=== PATIENT | female | born 1970 | race American Indian/Alaskan Native ===

== ENCOUNTER 2021-10-05 18:00 | Inpatient (IN) | payer MEDICAID, OTHER ==
[2021-10-05] MEDS ORDERED: SODIUM CHLORIDE 0.9% 1000 ML 1,000 ML IV ONE (18:37)
[2021-10-05] MEDS ORDERED: MORPHINE 4 MG/1 ML INJ IV ONE (18:37)
[2021-10-05] MEDS ORDERED: ONDANSETRON 4 MG/2 ML INJ IV ONE (18:37)
[2021-10-05 19:24] LABS: Mean Corpuscular HGB Conc 27 % (30-34); Mean Corpuscular Volume 78 fl (79-97); Platelet Count 423 K/mm3 (140-440); Red Blood Count 1.86 M/mm3 (3.65-5.03); Red Cell Distribution Width 25.8 % (13.2-15.2)
[2021-10-05 19:28] LABS: Hematocrit 14.6 % (30.3-42.9); Hemoglobin 3.9 gm/dl (10.1-14.3)
[2021-10-05 19:33] LABS: Alanine Aminotransferase 13 units/L (7-56); Albumin 2.9 g/dL (3.9-5); BUN/Creatinine Ratio 14; Blood Urea Nitrogen 11 mg/dL (7-17); Calcium 8.2 mg/dL (8.4-10.2); Hemolysis Index 0
[2021-10-05] MEDS ORDERED: SODIUM CHLORIDE 0.9% 500 ML 500 ML IV ONE ×2 (19:35→20:14)
--- NOTE | 2021-10-05 19:41 | Emergency Department Report ---
ED Abdominal Pain HPI - General Chief Complaint: Abdominal Pain Stated Complaint: ANEMIA AND PELVIC PAIN Time Seen by Provider: 10/05/21 18:17 Source: patient Mode of arrival: Wheelchair Limitations: Other - History of Present Illness Initial Comments: Patient is a 51-year-old female presents emergency room with complaints of generalized abdominal pain that began a week ago. Patient states that she has been having vaginal bleeding for 9 days. she states the bleeding has improved and she now just has spotting. She has associated nausea. She states that one day earlier in the week she did have a few episodes of vomiting. She states that she has no appetite and has not been eating very much. She states that she has been able to have a normal bowel movement. she states that she frequently has heavy vaginal bleeding for long periods. She states that she has a history of anemia. she states she last had a transfusion 11 years ago. She is not currently seeing a INTERCHANGE AGENT. No allergies to medications. Severity scale (0 -10): 5 - Related Data Allergies Allergy/AdvReac Type Severity Reaction Status Date / Time No Known Allergies Allergy Unverified 10/05/21 18:10 ED Review of Systems ROS: Stated complaint: ANEMIA AND PELVIC PAIN Other details as noted in HPI Comment: All other systems reviewed and negative ED Physical Exam - General Limitations: Other General appearance: alert, in no apparent distress - Head Head exam: Present: atraumatic, normocephalic - Eye Eye exam: Present: normal appearance - ENT ENT exam: Present: mucous membranes moist - Respiratory Respiratory exam: Present: normal lung sounds bilaterally. Absent: respiratory distress, wheezes, rales, rhonchi, stridor, chest wall tenderness, accessory muscle use, decreased breath sounds, prolonged expiratory - Cardiovascular Cardiovascular Exam: Present: normal rhythm, tachycardia, normal heart sounds. Absent: systolic murmur, diastolic murmur, rubs, gallop - GI/Abdominal GI/Abdominal exam: Present: soft, tenderness (suprapubic, LLQ), normal bowel sounds. Absent: distended, guarding, rebound, rigid - Neurological Exam Neurological exam: Present: alert, oriented X3 - Psychiatric Psychiatric exam: Present: normal affect, normal mood - Skin Skin exam: Present: warm, dry, intact ED Course Vital Signs 10/05/21 10/05/21 18:47 20:25 Temperature 98.2 F Pulse Rate 104 H Respiratory 15 19 Rate Blood Pressure 106/53 [Left] O2 Sat by Pulse 100 Oximetry - Reevaluation(s) Reevaluation #1: 10/05/21 20:[address] Nielsen, ER attending who recommended transfusing 3 units red blood cells - Consultations Consultation #1: 10/05/21 21:[address] Davidson, INTERCHANGE AGENT who advised she will consult on patient, advised not a surgical case at this time, advised hospitalist admission. 10/05/21 21:[address] Quinteros, hospitalist will accept and resume care of patient, advised to order IV Zosyn every 8 hours due to leukocytosis with abdominal pain, he will admit to hospitalist service. ED Medical Decision Making - Lab Data Result diagrams: 10/05/21 18:56 10/05/21 18:56 Lab Results 10/05/21 10/05/21 10/05/21 Range/Units 18:56 18:56 18:56 WBC 19.2 H (4.5-11.0) K/mm3 RBC 1.86 L (3.65-5.03) M/mm3 Hgb 3.9 L* (10.1-14.3) gm/dl Hct 14.6 L* (30.3-42.9) % MCV 78 L (79-97) fl MCH 21 L (28-32) pg MCHC 27 L (30-34) % RDW 25.8 H (13.2-15.2) % Plt Count 423 (140-440) K/mm3 Lymph % (Auto) [employer] [facility] % (Auto) [employer] Eos % (Auto) [employer] Baso % (Auto) [employer] Lymph # (Auto) [employer] [facility] # (Auto) [employer]ic Eos # (Auto) Fleet [employer]ic Baso # (Auto) Fleet [employer] Add Manual Diff Complete Total Counted 100 Seg Neutrophils % [employer] Seg Neuts % (Manual) 83.0 H (40.0-70.0) % Lymphocytes % (Manual) 12.0 L (13.4-35.0) % Monocytes % (Manual) 5.0 (0.0-7.3) % Nucleated RBC % Not Reportable Seg Neutrophils # [employer]ic Seg Neutrophils # Man 15.9 H (1.8-7.7) K/mm3 Band Neutrophils # 0.0 K/mm3 Lymphocytes # (Manual) 2.3 (1.2-5.4) K/mm3 Abs React Lymphs (Man) 0.0 K/mm3 Monocytes # (Manual) 1.0 H (0.0-0.8) K/mm3 Eosinophils # (Manual) 0.0 (0.0-0.4) K/mm3 Basophils # (Manual) 0.0 (0.0-0.1) K/mm3 Metamyelocytes # 0.0 K/mm3 Myelocytes # 0.0 K/mm3 Promyelocytes # 0.0 K/mm3 Blast Cells # 0.0 K/mm3 WBC Morphology Not Reportable Hypersegmented Neuts Not Reportable Hyposegmented Neuts Not Reportable Hypogranular Neuts Not Reportable Smudge Cells Not Reportable Toxic Granulation Not Reportable Toxic Vacuolation Not Reportable Dohle Bodies Not Reportable Pelger-Huet Anomaly Not Reportable Erendira Rods Not Reportable Platelet Estimate Consistent w auto Clumped Platelets Not Reportable Plt Clumps, EDTA Not Reportable Large Platelets Not Reportable Giant Platelets Not Reportable Platelet Satelliting Not Reportable Plt Morphology Comment Not Reportable RBC Morphology Not Reportable Dimorphic RBCs Not Reportable Polychromasia Not Reportable Hypochromasia 3+ Poikilocytosis 1+ Anisocytosis 2+ Microcytosis 2+ Macrocytosis Few Spherocytes Not Reportable Pappenheimer Bodies Not Reportable Sickle Cells Not Reportable Target Cells Rare Tear Drop Cells Not Reportable Ovalocytes Few Stomatocytes Few Helmet Cells Not Reportable [place] Bodies Not Reportable [place] Rings Not Reportable Rodolfo Cells Not Reportable Bite Cells Not Reportable Crenated Cell Not Reportable Elliptocytes Few Acanthocytes (Spur) Not Reportable Rouleaux Not Reportable Hemoglobin C Crystals Not Reportable Schistocytes Not Reportable Malaria parasites Not Reportable Yoav Bodies Not Reportable Hem Pathologist Commnt No Sodium 132 L (137-145) mmol/L Potassium 3.6 (3.6-5.0) mmol/L Chloride 98.3 (98-107) mmol/L Carbon Dioxide 18 L (22-30) mmol/L Anion Gap 19 mmol/L BUN 11 (7-17) mg/dL Creatinine 0.8 (0.6-1.2) mg/dL Estimated GFR > 60 ml/min BUN/Creatinine Ratio 14 % Glucose 103 H (65-100) mg/dL Calcium 8.2 L (8.4-10.2) mg/dL Total Bilirubin 0.40 (0.1-1.2) mg/dL AST 19 (5-40) units/L ALT 13 (7-56) units/L Alkaline Phosphatase 119 (35-129) units/L Total Protein 7.9 (6.3-8.2) g/dL Albumin 2.9 L (3.9-5) g/dL Albumin/Globulin Ratio 0.6 % Lipase 27 (13-60) units/L HCG, Qual Negative (Negative) Blood Type Antibody Screen Crossmatch 10/05/21 Range/Units 19:40 WBC (4.5-11.0) K/mm3 RBC (3.65-5.03) M/mm3 Hgb (10.1-14.3) gm/dl Hct (30.3-42.9) % MCV (79-97) fl MCH (28-32) pg MCHC (30-34) % RDW (13.2-15.2) % Plt Count (140-440) K/mm3 Lymph % (Auto) [place] % (Auto) Eos % (Auto) Baso % (Auto) Lymph # (Auto) [facility] [facility] # (Auto) Eos # (Auto) Baso # (Auto) Add Manual Diff Total Counted Seg Neutrophils % Seg Neuts % (Manual) (40.0-70.0) % Lymphocytes % (Manual) (13.4-35.0) % Monocytes % (Manual) (0.0-7.3) % Nucleated RBC % Seg Neutrophils # Seg Neutrophils # Man (1.8-7.7) K/mm3 Band Neutrophils # K/mm3 Lymphocytes # (Manual) (1.2-5.4) K/mm3 Abs React Lymphs (Man) K/mm3 Monocytes # (Manual) (0.0-0.8) K/mm3 Eosinophils # (Manual) (0.0-0.4) K/mm3 Basophils # (Manual) (0.0-0.1) K/mm3 Metamyelocytes # K/mm3 Myelocytes # K/mm3 Promyelocytes # K/mm3 Blast Cells # K/mm3 WBC Morphology Hypersegmented Neuts Hyposegmented Neuts Hypogranular Neuts Smudge Cells Toxic Granulation Toxic Vacuolation Dohle Bodies Pelger-Huet Anomaly Erendira Rods Platelet Estimate Clumped Platelets Plt Clumps, EDTA Large Platelets Giant Platelets Platelet Satelliting Plt Morphology Comment RBC Morphology Dimorphic RBCs Polychromasia Hypochromasia Poikilocytosis Anisocytosis Microcytosis Macrocytosis Spherocytes Pappenheimer Bodies Sickle Cells Target Cells Tear Drop Cells Ovalocytes Stomatocytes Helmet Cells [place]ar[place] Bodies [place] Rings Rodolfo Cells Bite Cells Crenated Cell Elliptocytes Acanthocytes (Spur) Rouleaux Hemoglobin C Crystals Schistocytes Malaria parasites Yoav Bodies Hem Pathologist Commnt Sodium (137-145) mmol/L Potassium (3.6-5.0) mmol/L Chloride (98-107) mmol/L Carbon Dioxide (22-30) mmol/L Anion Gap mmol/L BUN (7-17) mg/dL Creatinine (0.6-1.2) mg/dL Estimated GFR ml/min BUN/Creatinine Ratio % Glucose (65-100) mg/dL Calcium (8.4-10.2) mg/dL Total Bilirubin (0.1-1.2) mg/dL AST (5-40) units/L ALT (7-56) units/L Alkaline Phosphatase (35-129) units/L Total Protein (6.3-8.2) g/dL Albumin (3.9-5) g/dL Albumin/Globulin Ratio % Lipase (13-60) units/L HCG, Qual (Negative) Blood Type B POSITIVE Antibody Screen Negative Crossmatch See Detail Vital Signs 10/05/21 10/05/21 10/05/21 18:47 20:25 21:45 Temperature 98.2 F 98.2 F Pulse Rate 104 H 96 H Respiratory 15 19 17 Rate Blood Pressure 111/55 Blood Pressure 106/53 [Left] O2 Sat by Pulse 100 96 Oximetry - Radiology Data Radiology results: report reviewed Ordering Physician: RUTH ANN PRASAD Date of Service: 10/05/21 Procedure(s): CT abdomen pelvis w con Accession Number(s): [id number] cc: RUTH ANN PRASAD CT abdomen pelvis w con INDICATION / CLINICAL INFORMATION: generalized abd pain. TECHNIQUE: Axial CT images were obtained through the abdomen and pelvis after 100 cc Omnipaque [address] scans at this location are performed using CT dose reduc tion for ALARA by means of automated exposure control. COMPARISON: None available. FINDINGS: LOWER CHEST: No significant abnormality LIVER: Liver is enlarged with suspected hepatic steatosis. GALLBLADDER/BILIARY TREE: No significant abnormality PANCREAS: No significant abnormality SPLEEN: No significant abnormality ADRENALS: No significant abnormality KIDNEYS / URETER: Mild asymmetric prominence of the right ureter, may reflect mild obstruction related to enlarged fibroid uterus. No discrete ureteral stone. There is no delayed enhancement within either kidney. Left kidney is unremarkable. URINARY BLADDER: No significant abnormality REPRODUCTIVE ORGANS: Uterus is enlarged, measuring 13.8 cm. There are multiple partially calcified uterine fibroids. 14.3 cm mass arises from the left aspect of the uterine fundus and likely reflects large exophytic fibroid. No suspicious adnexal mass. STOMACH / BOWEL: No significant abnormality. The appendix is normal in caliber. LYMPH NODES: No significant adenopathy. VASCULATURE: No significant abnormality. OTHER: No free air, free fluid, or focal fluid collection is identified. SKELETAL SYSTEM: No acute osseous findings. IMPRESSION: 1. Markedly enlarged uterus with multiple partially calcified uterine fibroids. This includes a 14.3 cm partially calcified mass arising from the left aspect of the uterine fundus, likely reflecting large exophytic fibroid. Consider follow-up with gynecology. 2. Mild asymmetric prominence of the right ureter with transition located in the region of the enlarged fibroid uterus, may reflect mild obstruction. However, there is no delayed enhancement within the right kidney. No discrete ureteral stone identified. 3. Otherwise, no acute abnormality. 4. Enlarged, fatty liver and other incidental findings as above. Signer Name: Delvin Mendez MD Signed: 10/05/2021 9:01 PM Workstation Name: [id number] Transcribed By: BRNOWYN Dictated By: DELVIN MENDEZ MD Electronically Authenticated By: DELVIN MENDEZ MD Signed Date/Time: 10/05/212100 DD/ 52 TD/TT: - Medical Decision Making Patient is a 51-year-old female presents emergency room with complaints of generalized abdominal pain that began a week ago. Patient states that she has been having vaginal bleeding for 9 days. she states the bleeding has improved and she now just has spotting. She has associated nausea. She states that one day earlier in the week she did have a few episodes of vomiting. She states that she has no appetite and has not been eating very much. She states that she has been able to have a normal bowel movement. she states that she frequently has heavy vaginal bleeding for long periods. She states that she has a history of anemia. she states she last had a transfusion 11 years ago. She is not currently seeing a INTERCHANGE AGENT. No allergies to medications. On exam patient has suprapubic and left lower quadrant tenderness, no guarding, no rebound, no rigidity, no peritoneal signs. Labs significant for leukocytosis at 19,000 and significant anemia with hemoglobin of 3.9. CT abdomen pelvis with IV contrast 1. Markedly enlarged uterus with multiple partially calcified uterine fibroids. This includes a 14.3 cm partially calcified mass arising from the left aspect of the uterine fundus, likely reflecting large exophytic fibroid. Consider follow- up with gynecology. 2. Mild asymmetric prominence of the right ureter with transition located in the region of the enlarged fibroid uterus, may reflect mild obstruction. However, there is no delayed enhancement within the right kidney. No discrete ureteral stone identified. 3. Otherwise, no acute abnormality. 4. Enlarged, fatty liver and other incidental findings as above. discussed case with Dr. Nielsen, ER attending who recommended transfusing 3 units red blood cells. Discussed case with Dr. Davidson, INTERCHANGE AGENT who advised she will consult on patient, advised not a surgical case at this time, advised hospi talist admission. Spoke to Dr. Quinteros, hospitalist will accept and resume care of patient, advised to order IV Zosyn every 8 hours due to leukocytosis with abdominal pain, he will admit to hospitalist service. discussed all findings with pt who is agreeable with plan. Critical Care Time: Yes Critical care time in (mins) excluding proc time.: 35 Critical care attestation.: If time is entered above; I have spent that time in minutes in the direct care of this critically ill patient, excluding procedure time. Critical Care Time: Critical care time interpretation of diagnostic and laboratory studies, consultations, reexaminations ED Disposition Clinical Impression: Severe anemia Abdominal pain Qualifiers: Abdominal location: generalized Qualified Code(s): R10.84 - Generalized abdominal pain Uterine fibroid Qualifiers: Uterine leiomyoma location: unspecified location Qualified Code(s): D25.9 - Leiomyoma of uterus, unspecified Nausea & vomiting Qualifiers: Vomiting type: unspecified Vomiting Intractability: non-intractable Qualified Code(s): R11.2 - Nausea with vomiting, unspecified Leukocytosis Qualifiers: Leukocytosis type: unspecified Qualified Code(s): D72.829 - Elevated white blood cell count, unspecified Disposition: 02 [facility] Is pt being admited?: Yes Does the pt Need Aspirin: No Condition: Fair Instructions: Abdominal Pain (ED) Referrals: PRIMARY CARE, [Primary Care Provider] - 3-5 Days Time of Disposition: 21:43 Print Language: CZECH
[2021-10-05 20:13] LABS: Total Cells Counted 100
[2021-10-05 20:14] LABS: Anisocytosis 2+; Hypochromasia 3+; Macrocytosis Few; Ovalocytes Few; Platelet Estimate Consistent w Auto; Poikilocytosis 1+; Stomatocytes Few; Target Cells Rare
--- NOTE | 2021-10-05 21:05 | Cat Scan Report ---
CT abdomen pelvis w con INDICATION / CLINICAL INFORMATION: generalized abd pain. TECHNIQUE: Axial CT images were obtained through the abdomen and pelvis after 100 cc Omnipaque [address] scans at this location are performed using CT dose reduction for ALARA by means of automated exposure control. COMPARISON: None available. FINDINGS: LOWER CHEST: No significant abnormality LIVER: Liver is enlarged with suspected hepatic steatosis. GALLBLADDER/BILIARY TREE: No significant abnormality PANCREAS: No significant abnormality SPLEEN: No significant abnormality ADRENALS: No significant abnormality KIDNEYS / URETER: Mild asymmetric prominence of the right ureter, may reflect mild obstruction relate d to enlarged fibroid uterus. No discrete ureteral stone. There is no delayed enhancement within eith er kidney. Left kidney is unremarkable. URINARY BLADDER: No significant abnormality REPRODUCTIVE ORGANS: Uterus is enlarged, measuring 13.8 cm. There are multiple partially calcified ut erine fibroids. 14.3 cm mass arises from the left aspect of the uterine fundus and likely reflects la rge exophytic fibroid. No suspicious adnexal mass. STOMACH / BOWEL: No significant abnormality. The appendix is normal in caliber. LYMPH NODES: No significant adenopathy. VASCULATURE: No significant abnormality. OTHER: No free air, free fluid, or focal fluid collection is identified. SKELETAL SYSTEM: No acute osseous findings. IMPRESSION: 1. Markedly enlarged uterus with multiple partially calcified uterine fibroids. This includes a 14.3 cm partially calcified mass arising from the left aspect of the uterine fundus, likely reflecting lar ge exophytic fibroid. Consider follow-up with gynecology. 2. Mild asymmetric prominence of the right ureter with transition located in the region of the enlarg ed fibroid uterus, may reflect mild obstruction. However, there is no delayed enhancement within the right kidney. No discrete ureteral stone identified. 3. Otherwise, no acute abnormality. 4. Enlarged, fatty liver and other incidental findings as above. Signer Name: Jeb Mendez MD Signed: 10/05/2021 9:01 PM Workstation Name: [id number]
[2021-10-05] MEDS ORDERED: PIPERACIL/TAZOBACTA 4.5/NS 100 4.5 GM/100 ML VIAL IV ONE (21:42)
[2021-10-05] MEDS ORDERED: HYDROmorphone 1 MG/1 ML INJ IV PRN (22:44)
[2021-10-05] MEDS ORDERED: ALBUTEROL 2.5 MG/3 ML NEBU IH PRN (22:44)
[2021-10-05] MEDS ORDERED: ONDANSETRON 4 MG/2 ML INJ IV PRN (22:44)
--- NOTE | 2021-10-05 22:51 | History and Physical Report ---
History of Present Illness Date of examination: 10/05/21 Date of admission: 10/05/21 Chief complaint: Abdominal pain anemia History of present illness: 51-year-old female with history of uterine fibroid of generalized abdominal pain that began a week ago. Patient states that she has been having vaginal bleeding for 9 days. she states the bleeding has improved and she now just has spotting. She has associated nausea. She states that one day earlier in the week she did have a few episodes of vomiting. She states that she has no appetite and has not been eating very much. She states that she has been able to have a normal bowel movement. she states that she frequently has heavy vaginal bleeding for long periods. She states that she has a history of anemia. she states she last had a transfusion 11 years ago. She is not currently seeing a PIN BALL MACHINE MECHANIC. In the emergency room patient hemoglobin is 3.9 and hematocrit 14.6, WBC 19.2. subsequently Case was discussed with DIRECTOR HOME HEALTH Dr. Wilson. We are giving 3 unit of packed red blood cell and put on Zon DIRECTOR HOME HEALTH doctor will see the patient in the morning Past History Past Medical History: anemia (Fibroid), other Medications and Allergies Allergies Allergy/AdvReac Type Severity Reaction Status Date / Time No Known Allergies Allergy Unverified 10/05/21 18:10 Review of Systems All systems: negative Gastrointestinal: abdominal pain, nausea, vomiting Genitourinary Female: abnormal vaginal bleeding Exam - Constitutional Vitals: Temp Pulse Resp BP Pulse Ox 98.2 F 101 H 17 111/49 96 10/05/21 21:45 10/05/21 22:00 10/05/21 22:00 10/05/21 22:00 10/05/21 22:00 General appearance: Present: no acute distress, well-nourished - EENT Eyes: Present: PERRL ENT: hearing intact, clear oral mucosa - Neck Neck: Present: supple, normal ROM - Respiratory Respiratory effort: normal Respiratory: bilateral: CTA - Cardiovascular Heart Sounds: Present: S1 & S2. Absent: rub, click - Extremities Extremities: pulses symmetrical, No edema Peripheral Pulses: within normal limits - Abdominal General gastrointestinal: Present: soft, non-tender, non-distended, normal bowel sounds Female genitourinary: Present: normal - Integumentary Integumentary: Present: clear, warm, dry - Musculoskeletal Musculoskeletal: gait normal, strength equal bilaterally - Psychiatric Psychiatric: appropriate mood/affect, intact judgment & insight - Neurologic Neurologic: CNII-XII intact, moves all extremities Results - Labs CBC & Chem 7: 10/05/21 18:56 10/05/21 18:56 Labs: Laboratory Last Values WBC 19.2 K/mm3 (4.5-11.0) H 10/05/21 18:56 RBC 1.86 M/mm3 (3.65-5.03) L 10/05/21 18:56 Hgb 3.9 gm/dl (10.1-14.3) L* 10/05/21 18:56 Hct 14.6 % (30.3-42.9) L* 10/05/21 18:56 MCV 78 fl (79-97) L 10/05/21 18:56 MCH 21 pg (28-32) L 10/05/21 18:56 MCHC 27 % (30-34) L 10/05/21 18:56 RDW 25.8 % (13.2-15.2) H 10/05/21 18:56 Plt Count 423 K/mm3 (140-440) 10/05/21 18:56 Lymph % (Auto) Apparatus Repair Mechanic 10/05/21 18:56 Moffat % (Auto) Apparatus Repair Mechanic 10/05/21 18:56 Eos % (Auto) Apparatus Repair Mechanic 10/05/21 18:56 Baso % (Auto) Apparatus Repair Mechanic 10/05/21 18:56 Lymph # (Auto) Apparatus Repair Mechanic 10/05/21 18:56 Moffat # (Auto) Apparatus Repair Mechanic 10/05/21 18:56 Eos # (Auto) Apparatus Repair Mechanic 10/05/21 18:56 Baso # (Auto) Apparatus Repair Mechanic 10/05/21 18:56 Add Manual Diff Complete 10/05/21 18:56 Total Counted 100 10/05/21 18:56 Seg Neutrophils % Apparatus Repair Mechanic 10/05/21 18:56 Seg Neuts % (Manual) 83.0 % (40.0-70.0) H 10/05/21 18:56 Lymphocytes % (Manual) 12.0 % (13.4-35.0) L 10/05/21 18:56 Monocytes % (Manual) 5.0 % (0.0-7.3) 10/05/21 18:56 Nucleated RBC % Not Reportable 10/05/21 18:56 Seg Neutrophils # Apparatus Repair Mechanic 10/05/21 18:56 Seg Neutrophils # Man 15.9 K/mm3 (1.8-7.7) H 10/05/21 18:56 Band Neutrophils # 0.0 K/mm3 10/05/21 18:56 Lymphocytes # (Manual) 2.3 K/mm3 (1.2-5.4) 10/05/21 18:56 Abs React Lymphs (Man) 0.0 K/mm3 10/05/21 18:56 Monocytes # (Manual) 1.0 K/mm3 (0.0-0.8) H 10/05/21 18:56 Eosinophils # (Manual) 0.0 K/mm3 (0.0-0.4) 10/05/21 18:56 Basophils # (Manual) 0.0 K/mm3 (0.0-0.1) 10/05/21 18:56 Metamyelocytes # 0.0 K/mm3 10/05/21 18:56 Myelocytes # 0.0 K/mm3 10/05/21 18:56 Promyelocytes # 0.0 K/mm3 10/05/21 18:56 Blast Cells # 0.0 K/mm3 10/05/21 18:56 WBC Morphology Not Reportable 10/05/21 18:56 Hypersegmented Neuts Not Reportable 10/05/21 18:56 Hyposegmented Neuts Not Reportable 10/05/21 18:56 Hypogranular Neuts Not Reportable 10/05/21 18:56 Smudge Cells Not Reportable 10/05/21 18:56 Toxic Granulation Not Reportable 10/05/21 18:56 Toxic Vacuolation Not Reportable 10/05/21 18:56 Dohle Bodies Not Reportable 10/05/21 18:56 Pelger-Huet Anomaly Not Reportable 10/05/21 18:56 Erendira Rods Not Reportable 10/05/21 18:56 Platelet Estimate Consistent w auto 10/05/21 18:56 Clumped Platelets Not Reportable 10/05/21 18:56 Plt Clumps, EDTA Not Reportable 10/05/21 18:56 Large Platelets Not Reportable 10/05/21 18:56 Giant Platelets Not Reportable 10/05/21 18:56 Platelet Satelliting Not Reportable 10/05/21 18:56 Plt Morphology Comment Not Reportable 10/05/21 18:56 RBC Morphology Not Reportable 10/05/21 18:56 Dimorphic RBCs Not Reportable 10/05/21 18:56 Polychromasia Not Reportable 10/05/21 18:56 Hypochromasia 3+ 10/05/21 18:56 Poikilocytosis 1+ 10/05/21 18:56 Anisocytosis 2+ 10/05/21 18:56 Microcytosis 2+ 10/05/21 18:56 Macrocytosis Few 10/05/21 18:56 Spherocytes Not Reportable 10/05/21 18:56 Pappenheimer Bodies Not Reportable 10/05/21 18:56 Sickle Cells Not Reportable 10/05/21 18:56 Target Cells Rare 10/05/21 18:56 Tear Drop Cells Not Reportable 10/05/21 18:56 Ovalocytes Few 10/05/21 18:56 Stomatocytes Few 10/05/21 18:56 Helmet Cells Not Reportable 10/05/21 18:56 Esparza-Roderfield Bodies Not Reportable 10/05/21 18:56 Green Sea Rings Not Reportable 10/05/21 18:56 Rodolfo Cells Not Reportable 10/05/21 18:56 Bite Cells Not Reportable 10/05/21 18:56 Crenated Cell Not Reportable 10/05/21 18:56 Elliptocytes Few 10/05/21 18:56 Acanthocytes (Spur) Not Reportable 10/05/21 18:56 Rouleaux Not Reportable 10/05/21 18:56 Hemoglobin C Crystals Not Reportable 10/05/21 18:56 Schistocytes Not Reportable 10/05/21 18:56 Malaria parasites Not Reportable 10/05/21 18:56 Yoav Bodies Not Reportable 10/05/21 18:56 Hem Pathologist Commnt No 10/05/21 18:56 Sodium 132 mmol/L (137-145) L 10/05/21 18:56 Potassium 3.6 mmol/L (3.6-5.0) 10/05/21 18:56 Chloride 98.3 mmol/L (98-107) 10/05/21 18:56 Carbon Dioxide 18 mmol/L (22-30) L 10/05/21 18:56 Anion Gap 19 mmol/L 10/05/21 18:56 BUN 11 mg/dL (7-17) 10/05/21 18:56 Creatinine 0.8 mg/dL (0.6-1.2) 10/05/21 18:56 Estimated GFR > 60 ml/min 10/05/21 18:56 BUN/Creatinine Ratio 14 % 10/05/21 18:56 Glucose 103 mg/dL (65-100) H 10/05/21 18:56 Calcium 8.2 mg/dL (8.4-10.2) L 10/05/21 18:56 Total Bilirubin 0.40 mg/dL (0.1-1.2) 10/05/21 18:56 AST 19 units/L (5-40) 10/05/21 18:56 ALT 13 units/L (7-56) 10/05/21 18:56 Alkaline Phosphatase 119 units/L (35-129) 10/05/21 18:56 Total Protein 7.9 g/dL (6.3-8.2) 10/05/21 18:56 Albumin 2.9 g/dL (3.9-5) L 10/05/21 18:56 Albumin/Globulin Ratio 0.6 % 10/05/21 18:56 Lipase 27 units/L (13-60) 10/05/21 18:56 HCG, Qual Negative (Negative) 10/05/21 18:56 Blood Type B POSITIVE 10/05/21 19:40 Antibody Screen Negative 10/05/21 19:40 Crossmatch See Detail 10/05/21 19:40 Assessment and Plan VTE prophylaxis?: Mechanical Plan of care discussed with patient/family: Yes - Patient Problems (1) Severe anemia Current Visit: Yes Status: Acute Plan to address problem: Admit the patient to the medical floor. We are transfusing 3 unit of packed red blood cell. Reconsult DIRECTOR HOME HEALTH for evaluation. Recheck CBC in the morning. We also sent iron study iron iron-binding capacity ferritin TIBC (2) Abdominal pain Current Visit: Yes Status: Acute Qualifiers: Abdominal location: generalized Qualified Code(s): R10.84 - Generalized abdominal pain Plan to address problem: Pepcid 20 mg p.o. twice daily. Morphine 2 mg IV every 4 hours as needed. Zofran 4 mg IV every 6 hours as needed. DIRECTOR HOME HEALTH evaluation (3) Leukocytosis Current Visit: Yes Status: Acute Qualifiers: Leukocytosis type: unspecified Qualified Code(s): D72.829 - Elevated white blood cell count, unspecified Plan to address problem: Zosyn 4.5 g IV every 8 hours. We do the blood culture. Recheck CBC in the morning (4) Nausea & vomiting Current Visit: Yes Status: Acute Qualifiers: Vomiting type: unspecified Vomiting Intractability: non-intractable Qualified Code(s): R11.2 - Nausea with vomiting, unspecified Plan to address problem: Pepcid 20 mg p.o. twice daily. Zofran 4 mg every 6 hours as needed. We will monitor the patient closely (5) Uterine fibroid Current Visit: Yes Status: Acute Qualifiers: Uterine leiomyoma location: unspecified location Qualified Code(s): D25.9 - Leiomyoma of uterus, unspecified Plan to address problem: We consulted DIRECTOR HOME HEALTH for evaluation. (6) DVT prophylaxis Current Visit: Yes Status: Acute Plan to address problem: SCD for DVT prophylaxis. Pepcid 20 mg p.o. twice daily for GI prophylaxis. Patient is a full code
[2021-10-06] MEDS ORDERED: SODIUM CHLORIDE 0.9% 500 ML 500 ML IV ONE ×4 (01:10→19:29)
[2021-10-06] MEDS: ACETAMINOPHEN 325 MG TAB PO PRN ×2 (01:11→08:54)
[2021-10-06 01:47] LABS: % Iron Saturation 3.67 %
[2021-10-06 02:35] LABS: BUN/Creatinine Ratio 11; Blood Urea Nitrogen 9 mg/dL (7-17); Calcium 8.5 mg/dL (8.4-10.2); Hemolysis Index 2
[2021-10-06] MEDS: IPRATROPIUM/ALBUTEROL SULFATE 3 ML AMPUL.NEB IH SCH ×4 (02:39→20:50)
[2021-10-06 03:08] LABS: Hematocrit 16.5 % (30.3-42.9); Hemoglobin 4.6 gm/dl (10.1-14.3); Mean Corpuscular HGB Conc 28 % (30-34); Mean Corpuscular Volume 80 fl (79-97); Platelet Count 373 K/mm3 (140-440); Red Blood Count 2.07 M/mm3 (3.65-5.03); Red Cell Distribution Width 23.7 % (13.2-15.2)
[2021-10-06 04:19] LABS: Anisocytosis 2+; Total Cells Counted 100
[2021-10-06 04:20] LABS: Hypochromasia 3+; Large Platelets Few; Macrocytosis Few; Ovalocytes Few; Platelet Estimate Consistent w Auto; Stomatocytes Few
--- NOTE | 2021-10-06 04:45 | Consultation ---
History of Present Illness Consult date: 10/06/21 Requesting physician: REFUGIO MOSER Reason for consult: pelvic mass (with intermittent vaginal bleeding and severe anemia) History of present illness: with known history of uterine fibroids for the past 17yrs when she was told she had small uterine fibroids. Pt states she has not seen a oral health therapist sine that time due to lack of insurance coverage. Pt states that 10years ago she had a blood transfusion for heavy periods and low blood count and she since that time she has been listening to others recommend green tea and other home remedies including "eating starch" to improve her low blood count. She realized the severity of her problem over the past 2yrs that significantly worsened these past 2-3months. Her vision worsened and she became weaker in strength this week, hence she took her daughter's advice to go to the hospital and her mother took her her to [facility]. pt denies chest pain or palpitations or headache and states she was probably in denial hoping her fibroids would shrink. Pt denies soaking pads or large clots and still has monthly periods that were irregular these past 2months. Denies pelvic pain and is not sexually active at this time. Denies fever or chills Past History Past Medical History: other (anemia) Past Surgical History: other (tubal ligation) VICE CHAIRMAN History: fibroids (x17yrs) Family/Genetic History: other (her mother had hysterectomy for large fibroids as well while pt was a teenager) - Obstetrical History : 3 Number of Living Children: 3 Medications and Allergies Allergies Allergy/AdvReac Type Severity Reaction Status Date / Time No Known Allergies Allergy Verified 10/05/21 22:52 Home Medications Medication Instructions Recorded Confirmed Last Taken Type Ferrous Sulfate [Iron 325 MG] 325 mg PO DAILY 10/06/21 10/06/21 1 Day Ago History ~10/05/21 Active Meds: Active Medications Acetaminophen (Acetaminophen 325 Mg Tab) 650 mg PO Q4H PRN PRN Reason: Pain MILD(1-3)/Fever >100.5/HERNANDEZ Last Admin: 10/06/21 01:11 Dose: 650 mg Documented by: Albuterol (Albuterol 2.5 Mg/3 Ml Nebu) 2.5 mg IH Q3HRT PRN PRN Reason: Shortness Of Breath Albuterol/Ipratropium (Ipratropium/Albuterol Sulfate 3 Ml Ampul.Neb) 1 ampul IH Q6HRT [facility] Last Admin: 10/06/21 02:39 Dose: 1 ampul Documented by: Famotidine (Famotidine 20 Mg Tab) 20 mg PO BID [facility] Hydromorphone HCl (Hydromorphone 1 Mg/1 Ml Inj) 0.5 mg IV Q3H PRN PRN Reason: Pain , Severe (7-10) Piperacillin Sod/Tazobactam Sod (Zosyn/Ns 4.5gm/100ml) 4.5 gm in 100 mls @ 200 mls/hr IV Q8H ADRI; Protocol Ondansetron HCl (Ondansetron 4 Mg/2 Ml Inj) 4 mg IV Q8H PRN PRN Reason: Nausea And Vomiting Oxycodone/Acetaminophen (Oxycodone /Acetaminophen 5-325mg Tab) 1 tab PO Q6H PRN PRN Reason: Pain, Moderate (4-6) Sodium Chloride (Sodium Chloride 0.9% 10 Ml Flush Syringe) 10 ml IV BID [facility] Sodium Chloride (Sodium Chloride 0.9% 10 Ml Flush Syringe) 10 ml IV PRN PRN PRN Reason: LINE FLUSH Review of Systems All systems: negative (feeling weak) - Vital Signs Vital signs: Vital Signs Resp 15 10/05/21 18:47 Temp Pulse Resp BP Pulse Ox 98.5 F 92 H 18 109/53 96 10/06/21 04:21 10/06/21 04:21 10/06/21 04:21 10/06/21 04:21 10/06/21 04:00 - Physical Exam Breasts: Positive: deferred Cardiovascular: Other (mild tacchy) Lungs: Positive: Normal air movement Abdomen: Positive: soft Genitourinary (Female): Positive: normal external genitalia, normal perenium Vulva: both: normal Vagina: Positive: normal moisture (small dark red blood present in the vagina) Cervix: Positive: other (limited due to palpation only and an additional small mass felt in the posterior vault) Uterus: Positive: enlarged (18wk size and irregularly shaped) Adnexa: both: normal (limited by enlarged uterus) Extremities: Positive: normal Results Result Diagrams: 10/06/21 02:01 10/06/21 02:01 Abnormal lab results 10/05/21 10/05/21 10/05/21 Range/Units 18:56 18:56 18:56 WBC 19.2 H (4.5-11.0) K/mm3 RBC 1.86 L (3.65-5.03) M/mm3 Hgb 3.9 L* (10.1-14.3) gm/dl Hct 14.6 L* (30.3-42.9) % MCV 78 L (79-97) fl MCH 21 L (28-32) pg MCHC 27 L (30-34) % RDW 25.8 H (13.2-15.2) % Seg Neuts % (Manual) 83.0 H (40.0-70.0) % Lymphocytes % (Manual) 12.0 L (13.4-35.0) % Seg Neutrophils # Man 15.9 H (1.8-7.7) K/mm3 Lymphocytes # (Manual) (1.2-5.4) K/mm3 Monocytes # (Manual) 1.0 H (0.0-0.8) K/mm3 Sodium 132 L (137-145) mmol/L Carbon Dioxide 18 L (22-30) mmol/L Glucose 103 H (65-100) mg/dL Calcium 8.2 L (8.4-10.2) mg/dL Iron 8 L (37-170) ug/dL TIBC 218 L (250-450) mcg/dL Albumin 2.9 L (3.9-5) g/dL Crossmatch 10/05/21 10/06/21 10/06/21 Range/Units 19:40 02:01 02:01 WBC 18.8 H (4.5-11.0) K/mm3 RBC 2.07 L (3.65-5.03) M/mm3 Hgb 4.6 L* (10.1-14.3) gm/dl Hct 16.5 L* (30.3-42.9) % MCV (79-97) fl MCH 22 L (28-32) pg MCHC 28 L (30-34) % RDW 23.7 H (13.2-15.2) % Seg Neuts % (Manual) 88.0 H (40.0-70.0) % Lymphocytes % (Manual) 5.0 L (13.4-35.0) % Seg Neutrophils # Man 16.5 H (1.8-7.7) K/mm3 Lymphocytes # (Manual) 0.9 L (1.2-5.4) K/mm3 Monocytes # (Manual) 1.3 H (0.0-0.8) K/mm3 Sodium 131 L (137-145) mmol/L Carbon Dioxide 18 L (22-30) mmol/L Glucose 119 H (65-100) mg/dL Calcium (8.4-10.2) mg/dL Iron (37-170) ug/dL TIBC (250-450) mcg/dL Albumin (3.9-5) g/dL Crossmatch See Detail 10/06/21 Range/Units 02:01 WBC (4.5-11.0) K/mm3 RBC (3.65-5.03) M/mm3 Hgb (10.1-14.3) gm/dl Hct (30.3-42.9) % MCV (79-97) fl MCH (28-32) pg MCHC (30-34) % RDW (13.2-15.2) % Seg Neuts % (Manual) (40.0-70.0) % Lymphocytes % (Manual) (13.4-35.0) % Seg Neutrophils # Man (1.8-7.7) K/mm3 Lymphocytes # (Manual) (1.2-5.4) K/mm3 Monocytes # (Manual) (0.0-0.8) K/mm3 Sodium (137-145) mmol/L Carbon Dioxide (22-30) mmol/L Glucose (65-100) mg/dL Calcium (8.4-10.2) mg/dL Iron (37-170) ug/dL TIBC (250-450) mcg/dL Albumin (3.9-5) g/dL Crossmatch See Detail All other labs normal. Assessment and Plan Perimenopausal bleeding with large uterus, severe anemia, leucocytosis most likely inflammatory, afebrile, less concern for leiomyosarcoma with senior living uterine fibroid history; limited pelvic exam; limited communication skills with pt's diminished hearing. 1. Primary medicine team treating anemia and leucocytosis should improve 2. CT report read; will order transvag and Pelvic u/s for fibroid uterus to evaluate endometrial and myometrial abnormalities 3. If U/S suspicious for cancer, then I would recommend MRI 4. Pt to be seen as outpatient for papsmear 5. Limited benefit of EMB or tumor markers if leiomyosarcoma suspected and refe rral to [facility] would be done if this is the case 6. Will check FSH/LH/estradiol 7. Routine glass checker care with mammogram to be done as out patient 8. Discussed with patient at length that surgical mgt is preferred and no home remedies will cure these large fibroids; pt will need out patient workup prior t o scheduling definitive hysterectomy and bilateral salpingoophorectomy and pt verbalized understanding 9. Emotional support given and nurse present in the room for the entire exam and also assisted in repeating information with pt's diminishing hearing All questions encouraged and answered
[2021-10-06] MEDS: PIPERACIL/TAZOBACTA 4.5/NS 100 4.5 GM/100 ML VIAL IV SCH ×3 (05:30→21:25)
[2021-10-06 06:52] LABS: Bacteria,Urine 1+ /HPF (Negative); Bilirubin,Urine NEG (Negative); Blood,Urine MOD (Negative); Color,Urine Yellow (Yellow); Mucus,Urine FEW /HPF; Urobilinogen,Urine < 2.0 mg/dL (<2.0)
[2021-10-06] MEDS: FAMOTIDINE 20 MG TAB PO SCH ×2 (10:30→21:25)
--- NOTE | 2021-10-06 10:50 | Ultrasound Report ---
ULTRASOUND PELVIS INDICATION: cervical/vaginal mass with fibroids; perimenopause. TECHNIQUE: Transabdominal and Transvaginal. Duplex Color Doppler used: Yes. COMPARISON: Pelvic ultrasound performed on 12/28/2011 FINDINGS: Uterus: Enlarged, measuring 17.2 x 11.8 x 13.2 cm. Endometrial complex: Not clearly visualized. Mass lesions: Multiple solid masses are seen along the uterine fundus and body measuring up to 5.4 x 5.8 x 3.5 cm along the fundus. Additional findings: None. Right Ovary: Not seen due to bowel gas. No distinct right adnexal abnormality. Left Ovary: Not seen due to bowel gas. No distinct left adnexal abnormality. Urinary Bladder: Normal. Free Fluid: None. Additional Findings: None. IMPRESSION: 1. Enlargement of the uterus with multiple probable uterine fibroids as above. 2. Nonvisualization of the ovaries. Signer Name: Sami Mccord MD Signed: 10/06/2021 10:46 AM Workstation Name: [id number]
--- NOTE | 2021-10-06 12:13 | Progress Note ---
Subjective Date of service: 10/06/21 Interval history: 51-year-old female with history of uterine fibroid of generalized abdominal pain that began a week ago. Patient states that she has been having vaginal bleeding for 9 days. she states the bleeding has improved and she now just has spotting. She has associated nausea. She states that one day earlier in the week she did have a few episodes of vomiting. She states that she has no appetite and has not been eating very much. She states that she has been able to have a normal bowel movement. she states that she frequently has heavy vaginal bleeding for long periods. She states that she has a history of anemia. she states she last had a transfusion 11 years ago. She is not currently seeing a POLICY ADVISER. In the emergency room patient hemoglobin is 3.9 and hematocrit 14.6, WBC 19.2. subsequently Case was discussed with CABIN AGENT Dr. Wilson. We are giving 3 unit of packed red blood cell and put on Zosyn CABIN AGENT doctor will see the patient in the morning 10/06 patient is alert and oriented and offers no specific complaints except abdominal pain She denies any nausea or vomiting Denies fever or chills She is on her third unit of PRBC transfusion 12 point review of systems is essentially unremarkable Assessment and plan Uterine fibroids/menorrhagia Pelvic and intravaginal ultrasound results reviewed Enlarged uterus with multiple fibroids CABIN AGENT consulted Abdominal pain Secondary to #1 Continue as needed pain medication Severe anemia 2/ #1 Hemoglobin was 4.6 after 2 units of PRBC transfusion Discussed with RN We will transfuse 2 more units Monitor H&H closely Hyponatremia Mild Monitor electrolytes Neutrophilic leukocytosis Unclear etiology Patient is afebrile Continue empiric Zosyn Monitor Objective - Constitutional Vitals: Vital Signs - 12hr 10/06/21 10/06/21 10/06/21 00:44 01:18 01:43 Temperature 99.8 F H 98.3 F Pulse Rate 100 H 106 H Pulse Rate [ Anterior Bilateral Throughout] Respiratory 20 20 Rate Respiratory Rate [Anterior Bilateral Throughout] Blood Pressure 110/85 Blood Pressure 118/58 [Left] O2 Sat by Pulse 99 100 96 Oximetry 10/06/21 10/06/21 10/06/21 02:44 02:45 03:14 Temperature 99.1 F Pulse Rate 108 H Pulse Rate [ 103 H Anterior Bilateral Throughout] Respiratory 18 Rate Respiratory 18 Rate [Anterior Bilateral Throughout] Blood Pressure Blood Pressure 111/65 [Left] O2 Sat by Pulse 97 100 Oximetry 10/06/21 10/06/21 10/06/21 03:36 03:45 03:51 Temperature 98.2 F 98.7 F 98.7 F Pulse Rate 105 H 107 H 108 H Pulse Rate [ Anterior Bilateral Throughout] Respiratory 18 18 18 Rate Respiratory Rate [Anterior Bilateral Throughout] Blood Pressure 111/55 112/53 125/59 Blood Pressure [Left] O2 Sat by Pulse 100 Oximetry 10/06/21 10/06/21 10/06/21 04:00 04:21 04:51 Temperature 98.7 F 98.5 F 98.4 F Pulse Rate 105 H 92 H 101 H Pulse Rate [ Anterior Bilateral Throughout] Respiratory 18 18 18 Rate Respiratory Rate [Anterior Bilateral Throughout] Blood Pressure 112/56 109/53 113/57 Blood Pressure [Left] O2 Sat by Pulse 96 Oximetry 10/06/21 10/06/21 10/06/21 05:21 05:51 08:01 Temperature 98.8 F 98.6 F Pulse Rate 94 H 97 H Pulse Rate [ 87 Anterior Bilateral Throughout] Respiratory 18 18 Rate Respiratory 18 Rate [Anterior Bilateral Throughout] Blood Pressure 108/60 113/63 Blood Pressure [Left] O2 Sat by Pulse 100 100 99 Oximetry 10/06/21 10/06/21 11:00 11:05 Temperature 98.3 F 98.5 F Pulse Rate 87 90 Pulse Rate [ Anterior Bilateral Throughout] Respiratory 20 20 Rate Respiratory Rate [Anterior Bilateral Throughout] Blood Pressure 100/52 99/56 Blood Pressure [Left] O2 Sat by Pulse 100 100 Oximetry General appearance: Present: no acute distress - EENT Eyes: PERRL, EOM intact ENT: hearing intact, clear oral mucosa - Neck Neck: supple, normal ROM - Respiratory Respiratory effort: normal Respiratory: bilateral: CTA - Cardiovascular Rhythm: regular Heart Sounds: Present: S1 & S2 Extremities: No edema - Gastrointestinal General gastrointestinal: Present: soft, non-tender, tender (In the lower abdomen and the left lower quadrant), distended (Mildly distended) Rectal Exam: deferred - Genitourinary Female genitourinary: deferred - Integumentary Integumentary: clear, warm - Musculoskeletal Musculoskeletal: strength equal bilaterally - Neurologic Neurologic: no focal deficits, moves all extremities - Psychiatric Psychiatric: appropriate mood/affect - Labs CBC & Chem 7: 10/06/21 02:01 10/06/21 02:01 Labs: Abnormal lab results 10/05/21 10/05/21 10/05/21 Range/Units 18:56 18:56 18:56 WBC 19.2 H (4.5-11.0) K/mm3 RBC 1.86 L (3.65-5.03) M/mm3 Hgb 3.9 L* (10.1-14.3) gm/dl Hct 14.6 L* (30.3-42.9) % MCV 78 L (79-97) fl MCH 21 L (28-32) pg MCHC 27 L (30-34) % RDW 25.8 H (13.2-15.2) % Seg Neuts % (Manual) 83.0 H (40.0-70.0) % Lymphocytes % (Manual) 12.0 L (13.4-35.0) % Seg Neutrophils # Man 15.9 H (1.8-7.7) K/mm3 Lymphocytes # (Manual) (1.2-5.4) K/mm3 Monocytes # (Manual) 1.0 H (0.0-0.8) K/mm3 Sodium 132 L (137-145) mmol/L Carbon Dioxide 18 L (22-30) mmol/L Glucose 103 H (65-100) mg/dL Calcium 8.2 L (8.4-10.2) mg/dL Iron 8 L (37-170) ug/dL TIBC 218 L (250-450) mcg/dL Albumin 2.9 L (3.9-5) g/dL Crossmatch 10/05/21 10/06/21 10/06/21 Range/Units 19:40 02:01 02:01 WBC 18.8 H (4.5-11.0) K/mm3 RBC 2.07 L (3.65-5.03) M/mm3 Hgb 4.6 L* (10.1-14.3) gm/dl Hct 16.5 L* (30.3-42.9) % MCV (79-97) fl MCH 22 L (28-32) pg MCHC 28 L (30-34) % RDW 23.7 H (13.2-15.2) % Seg Neuts % (Manual) 88.0 H (40.0-70.0) % Lymphocytes % (Manual) 5.0 L (13.4-35.0) % Seg Neutrophils # Man 16.5 H (1.8-7.7) K/mm3 Lymphocytes # (Manual) 0.9 L (1.2-5.4) K/mm3 Monocytes # (Manual) 1.3 H (0.0-0.8) K/mm3 Sodium 131 L (137-145) mmol/L Carbon Dioxide 18 L (22-30) mmol/L Glucose 119 H (65-100) mg/dL Calcium (8.4-10.2) mg/dL Iron (37-170) ug/dL TIBC (250-450) mcg/dL Albumin (3.9-5) g/dL Crossmatch See Detail 10/06/21 Range/Units 02:01 WBC (4.5-11.0) K/mm3 RBC (3.65-5.03) M/mm3 Hgb (10.1-14.3) gm/dl Hct (30.3-42.9) % MCV (79-97) fl MCH (28-32) pg MCHC (30-34) % RDW (13.2-15.2) % Seg Neuts % (Manual) (40.0-70.0) % Lymphocytes % (Manual) (13.4-35.0) % Seg Neutrophils # Man (1.8-7.7) K/mm3 Lymphocytes # (Manual) (1.2-5.4) K/mm3 Monocytes # (Manual) (0.0-0.8) K/mm3 Sodium (137-145) mmol/L Carbon Dioxide (22-30) mmol/L Glucose (65-100) mg/dL Calcium (8.4-10.2) mg/dL Iron (37-170) ug/dL TIBC (250-450) mcg/dL Albumin (3.9-5) g/dL Crossmatch See Detail
--- NOTE | 2021-10-06 14:47 | Event Note ---
Date: 10/06/21 Official Reports of ultrasound without comment for cervical mass palpated by me. I called the dept and spoke with educational technician who directed me to the images attached and her written report that showed multiple masses to the uterine fundus and myometrium and cervical mass measuring 2.8x 2.5x3.6cm. Will discuss findings with the patient and primary team for cervical biopsy under general anesthesia tomorrow if pt is in agreement. Unclear whether papsmear available in hospital however cervical mass will need further evaluation with biopsy and and full (adequate) exam under anesthesia, OR preferable with possibility of hemorrhage. Plan of care now discussed with pt via nurse on speaker phone with mother of pt in the room and son of pt in the room per pt choice (nurse reports). Pt agreeable with EUA and biopsy sample and any other needed tissue sample as deemed necessary to diagnose her menometrorrhagia and cervical mass. Pt also told that I am not electronics manufacturer for the group tomorrow and the case will be added on per OR schedule. Will make pt NPO and give sufficient blood transfusions to get hgb above 8. Pt agreeable to blood transfusions as well. Pt also admits to having her last pap with the of her son 17yrs ago when she had insurance. Pt also told that if tissue is not a benign prolapsed fibroid, but cervical cancer, then she will have to be transferred for maintenance repairer oncology care at [place] or any nearby institution that has these services available. All questions encouraged and answered.
[2021-10-06] MEDS: oxyCODONE /ACETAMINOPHEN 5-325MG TAB PO PRN ×2 (14:53→21:26)
[2021-10-07] MEDS: PIPERACIL/TAZOBACTA 4.5/NS 100 4.5 GM/100 ML VIAL IV SCH ×3 (05:08→21:17)
[2021-10-07 06:17] LABS: Hematocrit 26.7 % (30.3-42.9); Hemoglobin 8.1 gm/dl (10.1-14.3); Mean Corpuscular HGB Conc 31 % (30-34); Mean Corpuscular Volume 82 fl (79-97); Platelet Count 365 K/mm3 (140-440); Red Blood Count 3.26 M/mm3 (3.65-5.03)
[2021-10-07 06:32] LABS: Blood Urea Nitrogen 5 mg/dL (7-17); Calcium 8.3 mg/dL (8.4-10.2); Hemolysis Index 0
[2021-10-07 06:37] LABS: BUN/Creatinine Ratio 7
[2021-10-07] MEDS ORDERED: IPRATROPIUM/ALBUTEROL SULFATE 3 ML AMPUL.NEB IH SCH (08:00)
[2021-10-07] MEDS: FAMOTIDINE 20 MG TAB PO SCH ×2 (09:59→21:17)
--- NOTE | 2021-10-07 10:48 | Progress Note ---
Subjective Date of service: 10/07/21 Interval history: 51-year-old female with history of uterine fibroid of generalized abdominal pain that began a week ago. Patient states that she has been having vaginal bleeding for 9 days. she states the bleeding has improved and she now just has spotting. She has associated nausea. She states that one day earlier in the week she did have a few episodes of vomiting. She states that she has no appetite and has not been eating very much. She states that she has been able to have a normal bowel movement. she states that she frequently has heavy vaginal bleeding for long periods. She states that she has a history of anemia. she states she last had a transfusion 11 years ago. She is not currently seeing a CO[employer] SEAMSTRESS. In the emergency room patient hemoglobin is 3.9 and hematocrit 14.6, WBC 19.2. subsequently Case was discussed with BLOCK BREAKER Dr. Wilson. We are giving 3 unit of packed red blood cell and put on Zosyn BLOCK BREAKER doctor will see the patient in the morning 10/06 patient is alert and oriented and offers no specific complaints except abdominal pain She denies any nausea or vomiting Denies fever or chills She is on her third unit of PRBC transfusion 12 point review of systems is essentially unremarkable Assessment and plan Uterine fibroids/menorrhagia/cervical mass Pelvic and intravaginal ultrasound results reviewed Enlarged uterus with multiple fibroids BLOCK BREAKER consulted/note reviewed Patient scheduled for biopsy of cervical mass today Discussed with patient and patient is aware of it Abdominal pain Secondary to #1 Continue as needed pain medication Severe anemia 2/2 #1 Hemoglobin was 4.6 after 2 units of PRBC transfusion Hemoglobin this morning is 8.1 (2 additional units of PRBC were given yesterday) Monitor H&H closely Hyponatremia Mild-improving Monitor electrolytes Neutrophilic leukocytosis Improving WBC down to 12.7 this morning Unclear etiology Patient is afebrile Continue empiric Zosyn Monitor Objective - Constitutional Vitals: Vital Signs - 12hr 10/06/21 10/06/21 10/07/21 22:45 22:50 02:53 Temperature 98.6 F Pulse Rate 112 H Pulse Rate [ Anterior Bilateral Throughout] Respiratory 18 Rate Respiratory Rate [Anterior Bilateral Throughout] Blood Pressure 113/60 O2 Sat by Pulse 98 99 96 Oximetry 10/07/21 10/07/21 06:21 08:13 Temperature 98.1 F Pulse Rate 125 H Pulse Rate [ 127 H Anterior Bilateral Throughout] Respiratory 18 Rate Respiratory 20 Rate [Anterior Bilateral Throughout] Blood Pressure 103/55 O2 Sat by Pulse 95 97 Oximetry General appearance: Present: no acute distress - EENT Eyes: PERRL, EOM intact ENT: hearing intact, clear oral mucosa - Neck Neck: supple, normal ROM - Respiratory Respiratory effort: normal Respiratory: bilateral: CTA - Cardiovascular Rhythm: regular Heart Sounds: Present: S1 & S2 Extremities: No edema - Gastrointestinal General gastrointestinal: Present: soft, tender (Moderately tender in the left mid abdomen), distended (Mildly distended) Rectal Exam: deferred - Integumentary Integumentary: clear - Musculoskeletal Musculoskeletal: strength equal bilaterally - Neurologic Neurologic: no focal deficits - Psychiatric Psychiatric: appropriate mood/affect - Labs CBC & Chem 7: 10/07/21 05:22 10/07/21 05:22 Labs: Abnormal lab results 10/05/21 10/06/21 10/07/21 Range/Units 19:40 02:01 05:22 WBC 12.7 H (4.5-11.0) K/mm3 RBC 3.26 L (3.65-5.03) M/mm3 Hgb 8.1 L D (10.1-14.3) gm/dl Hct 26.7 L D (30.3-42.9) % MCH 25 L (28-32) pg RDW 19.0 H (13.2-15.2) % Sodium (137-145) mmol/L Carbon Dioxide (22-30) mmol/L BUN (7-17) mg/dL Calcium (8.4-10.2) mg/dL Crossmatch See Detail See Detail 10/07/21 Range/Units 05:22 WBC (4.5-11.0) K/mm3 RBC (3.65-5.03) M/mm3 Hgb (10.1-14.3) gm/dl Hct (30.3-42.9) % MCH (28-32) pg RDW (13.2-15.2) % Sodium 135 L (137-145) mmol/L Carbon Dioxide 19 L (22-30) mmol/L BUN 5 L (7-17) mg/dL Calcium 8.3 L (8.4-10.2) mg/dL Crossmatch
[2021-10-07] MEDS: METOPROLOL TARTRATE 25 MG TAB PO SCH ×2 (12:00→22:58)
[2021-10-07] MEDS ORDERED: SODIUM CHLORIDE 0.9% 500 ML 500 ML IV NR (13:14)
--- NOTE | 2021-10-07 14:09 | Progress Note ---
Subjective - Subjective Date of service: 10/07/21 Interval history: 51yo with AUB-Leiomyoma. Severe anemia with tachycardia. 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 Patient was on the schedule today for EUA with cervical biopsy and was bumped for emergent vascular case. Patient rescheduled for tomorrow-time pending. At bedside, ot has scant blood noted on peripad. I explained her case is to be done tomorrow and that I would like for her to have another two units of PRBCs given her BP and HR. Admission Hb 3.9-current Hb 8.1; she has been transfused four units PRBCs to date. Suspect leukocytosis second to endometritis: on zosyn appropriately. Plan for today: regular diet, NPO after midnight, 2 more units PRBCs. no active bleeding or hemorrhaging at bedside, if condition worsens will expedite OR case. Yanick Le MD Objective - Vital Signs Latest vital signs: Vital Signs Temp Pulse Pulse Resp Resp BP BP 10/07/21 13:09 97.8 F 124 H 18 89/43 10/07/21 08:13 127 H 20 10/07/21 06:21 98.1 F 125 H 18 103/55 10/07/21 02:53 10/06/21 22:50 10/06/21 22:45 98.6 F 112 H 18 113/60 10/06/21 22:15 98.4 F 113 H 18 112/55 10/06/21 21:45 98.6 F 110 H 18 111/60 10/06/21 21:15 98.6 F 112 H 18 113/59 10/06/21 20:46 89 20 10/06/21 20:45 98.8 F 110 H 18 104/56 10/06/21 20:31 97.9 F 108 H 18 111/58 10/06/21 20:15 98.6 F 109 H 18 103/58 10/06/21 20:14 98.1 F 109 H 18 103/58 10/06/21 20:00 98.1 F 106 H 18 100/55 10/06/21 19:44 108 H 18 106/52 10/06/21 19:43 97.9 F 103 H 18 106/52 10/06/21 16:27 99.3 F 109 H 16 107/55 Pulse Ox 10/07/21 13:09 96 10/07/21 08:13 97 10/07/21 06:21 95 10/07/21 02:53 96 10/06/21 22:50 99 10/06/21 22:45 98 10/06/21 22:15 10/06/21 21:45 97 10/06/21 21:15 100 10/06/21 20:46 10/06/21 20:45 10/06/21 20:31 10/06/21 20:15 10/06/21 20:14 10/06/21 20:00 99 10/06/21 19:44 98 10/06/21 19:43 98 10/06/21 16:27 96 Intake and Output 10/06/21 10/07/21 10/07/21 23:59 07:59 15:59 Intake Total 370 Balance 370 Intake: IV 120 Left Forearm 10 Right Hand 10 ZOSYN/NS 4.5GM/100ML 4.5 100 gm In 100 ml @ 200 mls/hr IV Q8H [facility] Rx#:[id number] Blood Product 250 Leukoreduced Red Blood 250 Cells Unit [id number] Other: Weight 74 kg Patient Weight 10/07/21 23:59 Weight 74 kg - Labs Labs: Abnormal lab results 10/06/21 10/07/21 10/07/21 Range/Units 02:01 05:22 05:22 WBC 12.7 H (4.5-11.0) K/mm3 RBC 3.26 L (3.65-5.03) M/mm3 Hgb 8.1 L D (10.1-14.3) gm/dl Hct 26.7 L D (30.3-42.9) % MCH 25 L (28-32) pg RDW 19.0 H (13.2-15.2) % Sodium 135 L (137-145) mmol/L Carbon Dioxide 19 L (22-30) mmol/L BUN 5 L (7-17) mg/dL Calcium 8.3 L (8.4-10.2) mg/dL Crossmatch See Detail
--- NOTE | 2021-10-07 19:41 | Anesthesia Consultation ---
Anesthesia Consult and Med Hx Date of service: 10/08/21 - Airway Anesthetic Teeth Evaluation: Good, Chipped (#9) ROM Head & Neck: Adequate Mental/Hyoid Distance: Adequate Mallampati Class: Class II Intubation Access Assessment: Probably Good - Pre-Operative Health Status ASA Pre-Surgery Classification: ASA2 Proposed Anesthetic Plan: General - Pulmonary Hx Smoking: No Hx Respiratory Symptoms: No - Cardiovascular System Hx Hypertension: No Hx Heart Attack/AMI: No Hx Cardia Arrhythmia: No - Central Nervous System CVA: No - Endocrine Hx Renal Disease: No Hx Liver Disease: No Hx Insulin Dependent Diabetes: No Hx Non-Insulin Dependent Diabetes: No Hx Thyroid Disease: No - Hematic Hx Anemia: Yes - Other Systems Hx Obesity: No - Additional Comments Anesthesia Medical History Comments: No hx anesthetic complications. Presented with profound anemia, now improved s/p blood transfusion.
[2021-10-07] MEDS: oxyCODONE /ACETAMINOPHEN 5-325MG TAB PO PRN (21:16)
[2021-10-08] MEDS: ACETAMINOPHEN 325 MG TAB PO PRN (05:54)
[2021-10-08] MEDS: PIPERACIL/TAZOBACTA 4.5/NS 100 4.5 GM/100 ML VIAL IV SCH ×3 (05:55→22:59)
[2021-10-08 06:28] LABS: Basophils % (Auto) 0.2 % (0.0-1.8); Eosinophils # (Auto) 0.1 K/mm3 (0.0-0.4); Eosinophils % (Auto) 0.6 % (0.0-4.3); Lymphocytes # (Auto) 1.3 K/mm3 (1.2-5.4); Lymphocytes % (Auto) 9.5 % (13.4-35.0); Mean Corpuscular HGB Conc 30 % (30-34); Mean Corpuscular Volume 83 fl (79-97); Monocytes # (Auto) 1.4 K/mm3 (0.0-0.8); Monocytes % (Auto) 9.5 % (0.0-7.3); Platelet Count 362 K/mm3 (140-440); Red Blood Count 3.99 M/mm3 (3.65-5.03); Red Cell Distribution Width 18.5 % (13.2-15.2)
[2021-10-08 06:44] LABS: Hematocrit 33.1 % (30.3-42.9); Hemoglobin 9.9 gm/dl (10.1-14.3)
--- NOTE | 2021-10-08 07:00 | Progress Note ---
Subjective - Subjective Date of service: 10/08/21 Interval history: Preoperative note: Preoperative diagnosis: Dysfunctional uterine bleeding with uterine fibroids and severe anemia Planned procedure: Exam under anesthesia with cervical and endometrial biopsy Informed consent obtained N.p.o. on-call to the OR for procedure Yanick Le MD Objective - Vital Signs Latest vital signs: Vital Signs Temp Pulse Pulse Resp Resp BP BP 10/08/21 06:48 98.5 F 10/08/21 04:51 101.0 F H 122 H 20 111/70 10/08/21 00:17 98.9 F 125 H 18 109/73 10/07/21 22:58 123 H 113/73 10/07/21 22:51 123 H 113/73 10/07/21 22:04 98.4 F 123 H 18 96/59 10/07/21 22:00 10/07/21 21:24 115 H 10/07/21 20:30 117 H 99/60 10/07/21 19:27 98.9 F 117 H 18 99/60 10/07/21 18:58 108/64 10/07/21 18:57 98.5 F 126 H 20 108/64 10/07/21 18:27 98.1 F 126 H 20 99/64 10/07/21 18:26 98.1 F 20 108/70 10/07/21 18:25 130 H 112/69 10/07/21 17:57 98.5 F 129 H 20 112/69 10/07/21 17:45 98.1 F 133 H 20 105/62 10/07/21 17:31 98.1 F 140 H 20 108/65 10/07/21 17:07 137 H 10/07/21 16:12 140 H 20 108/65 10/07/21 16:11 144 H 10/07/21 16:01 20 10/07/21 13:09 97.8 F 124 H 18 89/43 10/07/21 10:00 20 10/07/21 08:13 127 H 20 Pulse Ox 10/08/21 06:48 10/08/21 04:51 95 10/08/21 00:17 98 10/07/21 22:58 10/07/21 22:51 96 10/07/21 22:04 96 10/07/21 22:00 98 10/07/21 21:24 99 10/07/21 20:30 98 10/07/21 19:27 97 10/07/21 18:58 10/07/21 18:57 99 10/07/21 18:27 99 10/07/21 18:26 10/07/21 18:25 96 10/07/21 17:57 98 10/07/21 17:45 97 10/07/21 17:31 99 10/07/21 17:07 95 10/07/21 16:12 99 10/07/21 16:11 97 10/07/21 16:01 10/07/21 13:09 96 10/07/21 10:00 99 10/07/21 08:13 97 Intake and Output 10/07/21 10/07/21 10/08/21 15:59 23:59 07:59 Intake Total 1511 200 Balance 1511 200 Intake: IV 100 200 ZOSYN/NS 4.5GM/100ML 4.5 100 200 gm In 100 ml @ 200 mls/hr IV Q8H [facility] Rx#:[id number] Oral 400 Blood Product 500 0 Leukoreduced Red Blood 0 0 Cells Unit [id number] Leukoreduced Red Blood 0 Cells Unit [id number] Other 511 Other: Intake, Other Source Saline Solution Total, Intake Amount 1211 Voiding Method Toilet # Voids Void 1 1 - Labs Labs: Abnormal lab results 10/06/21 10/08/21 Range/Units 02:01 05:58 WBC 14.2 H (4.5-11.0) K/mm3 Hgb 9.9 L (10.1-14.3) gm/dl MCH 25 L (28-32) pg RDW 18.5 H (13.2-15.2) % Lymph % (Auto) 9.5 L (13.4-35.0) % [place] % (Auto) 9.5 H (0.0-7.3) % [place] # (Auto) 1.4 H (0.0-0.8) K/mm3 Seg Neutrophils % 80.2 H (40.0-70.0) % Seg Neutrophils # 11.4 H (1.8-7.7) K/mm3 Crossmatch See Detail
[2021-10-08] MEDS ORDERED: dexAMETHasone 20 MG/5 ML VIAL ONE (07:20)
[2021-10-08] MEDS ORDERED: LIDOCAINE MPF (2%) 20 MG/1 ML VIAL 5 ML ONE (07:20)
[2021-10-08] MEDS ORDERED: KETOROLAC 30 MG/1 ML INJ ONE (07:20)
[2021-10-08] MEDS ORDERED: ONDANSETRON 4 MG/2 ML INJ ONE (07:20)
[2021-10-08] MEDS ORDERED: fentaNYL 100 MCG/2 ML INJ ONE (07:20)
[2021-10-08] MEDS ORDERED: ePHEDrine SULFATE 50 MG/1 ML INJ ONE (07:21)
[2021-10-08] MEDS ORDERED: propofoL 200 MG/20 ML VIAL IV ONE (07:21)
[2021-10-08] MEDS ORDERED: MIDAZOLAM 2 MG/2 ML INJ ONE (07:36)
[2021-10-08] MEDS ORDERED: SODIUM CHLORIDE 0.9% IRR 1,500 ML BOTTLE IR ONE (08:00)
[2021-10-08] MEDS ORDERED: HYDROmorphone 1 MG/1 ML INJ IV PRN (08:00)
[2021-10-08] MEDS ORDERED: ONDANSETRON 4 MG/2 ML INJ IV PRN ×2 (08:00→09:30)
--- NOTE | 2021-10-08 08:16 | Anesthesia Day of Surgery ---
Anesthesia Day of Surgery - Day of Surgery Patient Examined: Yes Patient H&P Reviewed: Yes Patient is NPO: Yes
[2021-10-08] MEDS ORDERED: METHYLERGONOVINE MALEATE 0.2 MG/ML VIAL IM ONE (08:22)
[2021-10-08] MEDS ORDERED: ALBUMIN HUMAN 5% (12.5 GM/250 ML) INJ IV ONE (08:22)
[2021-10-08] MEDS ORDERED: SUGAMMADEX SODIUM 200 MG/2 ML VIAL IV ONE (08:33)
--- NOTE | 2021-10-08 09:15 | Operative Report ---
Operative Report Operative Report: Operation performed: 1. Examined under anesthesia 2. Myomectomy Surgeon: Dr. Chanel Le Anesthesia: GETA EBL: 1000 mL UOP: 20 mL IVF: 1 L crystalloid, 2 units PRBCs Pathology specimens: Large uterine mass suspected myoma sent to pathology for frozen section Complications: Intraoperative hemorrhage Disposition and condition: To the PACU in stable condition then to [facility] service on mother-baby Findings: 1. 18 to 20 weeks fixed pelvic mass 2. Aborting myoma/uterine mass Patient was counseled about risks benefits and possible complications of the procedure. All alternatives were reviewed. Planned intraoperative and postoperative course discussed in detail. Pictures were used for visualization and education purposes. All questions and concerns were reviewed and then informed consent was obtained. Procedure: Patient was taken to the operating room where she received excellent general endotracheal anesthesia. She was then placed in the dorsolithotomy position, prepped and draped in a sterile fashion. Exam under anesthesia revealed a large fixed pelvic mass 18 to 20 weeks size. A timeout was verified. 20 mL clear urine obtained with red rubber catheter. A speculum was then placed in the vaginal vault and the large uterine mass was noted to be aborting from the endocervical canal. The single-tooth tenaculum was placed on the mass, the mass was removed with torsion. The mass was sent to pathology for frozen section. Patient had a large amount of blood noted from the myoma pedicle at the completion of the procedure. Methergine 0.2 mg IM was given x1 dose and pressure applied. 2 units of blood were brought into the operating room and transfuse immediate. Patient's hemorrhaging stopped with medical management and a hysterectomy was not necessary for lifesaving measures. Given the suspicion for cancer patient will be treated medically and transferred to a facility for definitve treatment with [facility]-On[facility]. IM service notified of plan to transfer patient to [facility] service. Patient extubated and hemodynamically stable to PACU. Frozen specimen not evaluated at the time of service secondary to unavailability of pathology. All sponge needle and instrument counts are correct x2. Patient's family was noted of intraoperative course. Yanick Le MD
[2021-10-08] MEDS ORDERED: PROMETHAZINE 25 MG TAB PO PRN (09:30)
[2021-10-08] MEDS ORDERED: ACETAMINOPHEN 325 MG TAB PO PRN (10:00)
[2021-10-08] MEDS ORDERED: PROMETHAZINE 25 MG RECT SUPP PR PRN (10:00)
[2021-10-08] MEDS ORDERED: diphenhydrAMINE 25 MG CAP PO PRN (10:00)
--- NOTE | 2021-10-08 10:36 | Post Anesthesia Evaluation ---
- Post Anesthesia Evaluation Patient Participated: Yes Airway Patent: Yes Stable Respiratory Function: Yes Nausea/Vomiting: No Temp > 96.8F: Yes Pain Manageable: Yes Adequeate Hydration: Yes Anesthesia Complications: No Other Comments: Received pRBC transfusion in PACU due to intraoperative blood loss. HD stable. OK for transfer to floor.
[2021-10-08] MEDS: METOPROLOL TARTRATE 25 MG TAB PO SCH ×2 (10:40→21:38)
[2021-10-08] MEDS: FAMOTIDINE 20 MG TAB PO SCH ×2 (11:57→21:37)
[2021-10-08] MEDS: IBUPROFEN 600 MG TAB PO SCH ×3 (11:57→22:09)
--- NOTE | 2021-10-08 12:10 | Progress Note ---
Assessment and Plan - Patient Problems (1) Uterine fibroid Current Visit: Yes Status: Acute Qualifiers: Uterine leiomyoma location: unspecified location Qualified Code(s): D25.9 - Leiomyoma of uterus, unspecified Plan to address problem: Patient doing overall okay s/p myoomectomy of prolasping fibroid with concurrent symptomatic anemia s/p 6 units PRBCs with appropriate rise. Vaginal bleeding improved. Continue abx for possible endometritis given recently instrumented. Frozen path benign. --Continue methergine for new --Continue inpatient management Subjective - Subjective Date of service: 10/08/21 Principal diagnosis: POD0 s/p myomectomy for prolasping fibroid Interval history: Patient reports that she is doing okay after the surgery. Reports that her throat hurts. Reports bleeding improved. Wants to known the next steps in management. Patient reports: appetite normal, pain well controlled Objective - Vital Signs Latest vital signs: Vital Signs Temp Pulse Resp BP BP Pulse Ox 10/08/21 10:40 96 H 101/72 97 10/08/21 10:30 97.3 F L 96 H 16 101/72 97 10/08/21 10:05 97.8 F 96 H 16 110/70 99 10/08/21 09:50 97.5 F L 95 H 14 108/68 99 10/08/21 09:30 16 10/08/21 09:24 97.8 F 97 H 16 112/77 97 10/08/21 09:11 98 F 97 H 16 101/74 100 10/08/21 09:05 98 H 19 108/62 100 10/08/21 09:00 102 H 19 112/69 100 10/08/21 08:55 106 H 20 101/59 100 10/08/21 08:52 97.5 F L 104 H 18 101/54 100 10/08/21 06:48 98.5 F 10/08/21 04:51 101.0 F H 122 H 20 111/70 95 10/08/21 00:17 98.9 F 125 H 18 109/73 98 10/07/21 22:58 123 H 113/73 10/07/21 22:51 123 H 113/73 96 10/07/21 22:04 98.4 F 123 H 18 96/59 96 10/07/21 22:00 98 10/07/21 21:24 115 H 99 10/07/21 20:30 117 H 99/60 98 10/07/21 19:27 98.9 F 117 H 18 99/60 97 10/07/21 18:58 108/64 10/07/21 18:57 98.5 F 126 H 20 108/64 99 10/07/21 18:27 98.1 F 126 H 20 99/64 99 10/07/21 18:26 98.1 F 20 108/70 10/07/21 18:25 130 H 112/69 96 10/07/21 17:57 98.5 F 129 H 20 112/69 98 10/07/21 17:45 98.1 F 133 H 20 105/62 97 10/07/21 17:31 98.1 F 140 H 20 108/65 99 10/07/21 17:07 137 H 95 10/07/21 16:12 140 H 20 108/65 99 10/07/21 16:11 144 H 97 10/07/21 16:01 20 10/07/21 13:09 97.8 F 124 H 18 89/43 96 Intake and Output 10/07/21 10/08/21 10/08/21 23:59 07:59 15:59 Intake Total 1424 125 4660 Balance 6174 945 4150 Intake: IV 100 200 800 ZOSYN/NS 4.5GM/100ML 4.5 100 200 gm In 100 ml @ 200 mls/hr IV Q8H [facility] Rx#:[id number] Oral 400 Blood Product 500 0 250 Leukoreduced Red Blood 0 0 Cells Unit [id number] Leukoreduced Red Blood 250 Cells Unit [id number] Leukoreduced Red Blood 0 Cells Unit [id number] Leukoreduced Red Blood 0 Cells Unit [id number] Other 511 Other: Intake, Other Source Saline Solution Total, Intake Amount 1211 Voiding Method Toilet Toilet # Voids Void 1 - Exam Abdomen: Present: normal appearance, soft - Labs Labs: Abnormal lab results 10/06/21 10/08/21 Range/Units 02:01 05:58 WBC 14.2 H (4.5-11.0) K/mm3 Hgb 9.9 L (10.1-14.3) gm/dl MCH 25 L (28-32) pg RDW 18.5 H (13.2-15.2) % Lymph % (Auto) 9.5 L (13.4-35.0) % [place] % (Auto) 9.5 H (0.0-7.3) % [place] # (Auto) 1.4 H (0.0-0.8) K/mm3 Seg Neutrophils % 80.2 H (40.0-70.0) % Seg Neutrophils # 11.4 H (1.8-7.7) K/mm3 Crossmatch See Detail
[2021-10-08] MEDS: METHYLERGONOVINE 0.2 MG TABLET PO SCH ×2 (13:54→21:37)
[2021-10-08] MEDS: HYDROcodone/ACETAMINOPHEN 5-325 MG TAB PO PRN ×2 (13:54→21:37)
--- NOTE | 2021-10-08 14:44 | Progress Note ---
Assessment and Plan Assessment and plan: 51-year-old female with history of uterine fibroid of generalized abdominal pain that began a week ago. Patient states that she has been having vaginal bleeding for 9 days. she states the bleeding has improved and she now just has spotting. She has associated nausea. She states that one day earlier in the week she did have a few episodes of vomiting. She states that she has no appetite and has not been eating very much. She states that she has been able to have a normal bowel movement. she states that she frequently has heavy vaginal bleeding for long periods. She states that she has a history of anemia. she states she last had a transfusion 11 years ago. She is not currently seeing a [employer]. In the emergency room patient hemoglobin is 3.9 and hematocrit 14.6, WBC 19.2. subsequently Case was discussed with HEAD OF ART Dr. Wilson. We are giving 3 unit of packed red blood cell and put on Zosyn HEAD OF ART doctor will see the patient in the morning 10/06 patient is alert and oriented and offers no specific complaints except abdominal pain She denies any nausea or vomiting Denies fever or chills She is on her third unit of PRBC transfusion 12 point review of systems is essentially unremarkable 10/08: Discussed with HEAD OF ART team following procedure noted to have uterine fibroids status post myomectomy of prolapsing fibroid with concurrent symptomatic anemia she has received 6 unit of packed red blood cell so far. We'll continue with management per them transfer to the HEAD OF ART service. Awaiting pathology report. Monitor H&H. Will reevaluate tomorrow to further understand her comprehension of her overall medical condition Assessment and plan Uterine fibroids/menorrhagia/cervical mass Pelvic and intravaginal ultrasound results reviewed Enlarged uterus with multiple fibroids HEAD OF ART consulted/note reviewed Patient scheduled for biopsy of cervical mass today Discussed with patient and patient is aware of it Abdominal pain Secondary to #1 Continue as needed pain medication Severe anemia 2/2 #1 Hemoglobin was 4.6 after 2 units of PRBC transfusion Hemoglobin this morning is 8.1 (2 additional units of PRBC were given yesterday) Monitor H&H closely Hyponatremia Mild-improving Monitor electrolytes Neutrophilic leukocytosis Improving WBC down to 12.7 this morning Unclear etiology Patient is afebrile Continue empiric Zosyn Monitor History Interval history: Patient seen and examined this afternoon post surgery. She is resting comfortably hard of hearing. Poor insight into her medical condition. Hospitalist Physical - Physical exam Narrative exam: neral appearance: Present: no acute distress - EENT Eyes: PERRL, EOM intact ENT: hearing intact, clear oral mucosa, hard of hearing - Neck Neck: supple, normal ROM - Respiratory Respiratory effort: normal Respiratory: bilateral: CTA - Cardiovascular Rhythm: regular Heart Sounds: Present: S1 & S2 Extremities: No edema - Gastrointestinal General gastrointestinal: Present: soft, still mildly tender (Moderately tender in the left mid abdomen), distended (Mildly distended) Rectal Exam: deferred - Integumentary Integumentary: clear - Musculoskeletal Musculoskeletal: strength equal bilaterally - Neurologic Neurologic: no focal deficits - Psychiatric Psychiatric: appropriate mood/affect - Constitutional Vitals: Temp Pulse Resp BP Pulse Ox 98 F 93 H 18 100/70 97 10/08/21 11:57 10/08/21 11:57 10/08/21 11:57 10/08/21 11:57 10/08/21 11:57 General appearance: Present: no acute distress Results - Labs CBC & Chem 7: 10/08/21 05:58 10/07/21 05:22 Labs: Laboratory Last Values WBC 14.2 K/mm3 (4.5-11.0) H 10/08/21 05:58 RBC 3.99 M/mm3 (3.65-5.03) 10/08/21 05:58 Hgb 9.9 gm/dl (10.1-14.3) L 10/08/21 05:58 Hct 33.1 % (30.3-42.9) D 10/08/21 05:58 MCV 83 fl (79-97) 10/08/21 05:58 MCH 25 pg (28-32) L 10/08/21 05:58 MCHC 30 % (30-34) 10/08/21 05:58 RDW 18.5 % (13.2-15.2) H 10/08/21 05:58 Plt Count 362 K/mm3 (140-440) 10/08/21 05:58 Lymph % (Auto) 9.5 % (13.4-35.0) L 10/08/21 05:58 [place] % (Auto) 9.5 % (0.0-7.3) H 10/08/21 05:58 Eos % (Auto) 0.6 % (0.0-4.3) 10/08/21 05:58 Baso % (Auto) 0.2 % (0.0-1.8) 10/08/21 05:58 Lymph # (Auto) 1.3 K/mm3 (1.2-5.4) 10/08/21 05:58 [place] # (Auto) 1.4 K/mm3 (0.0-0.8) H 10/08/21 05:58 Eos # (Auto) 0.1 K/mm3 (0.0-0.4) 10/08/21 05:58 Baso # (Auto) 0.0 K/mm3 (0.0-0.1) 10/08/21 05:58 Add Manual Diff Complete 10/06/21 02:01 Total Counted 100 10/06/21 02:01 Seg Neutrophils % 80.2 % (40.0-70.0) H 10/08/21 05:58 Seg Neuts % (Manual) 88.0 % (40.0-70.0) H 10/06/21 02:01 Lymphocytes % (Manual) 5.0 % (13.4-35.0) L 10/06/21 02:01 Monocytes % (Manual) 7.0 % (0.0-7.3) 10/06/21 02:01 Nucleated RBC % Not Reportable 10/06/21 02:01 Seg Neutrophils # 11.4 K/mm3 (1.8-7.7) H 10/08/21 05:58 Seg Neutrophils # Man 16.5 K/mm3 (1.8-7.7) H 10/06/21 02:01 Band Neutrophils # 0.0 K/mm3 10/06/21 02:01 Lymphocytes # (Manual) 0.9 K/mm3 (1.2-5.4) L 10/06/21 02:01 Abs React Lymphs (Man) 0.0 K/mm3 10/06/21 02:01 Monocytes # (Manual) 1.3 K/mm3 (0.0-0.8) H 10/06/21 02:01 Eosinophils # (Manual) 0.0 K/mm3 (0.0-0.4) 10/06/21 02:01 Basophils # (Manual) 0.0 K/mm3 (0.0-0.1) 10/06/21 02:01 Metamyelocytes # 0.0 K/mm3 10/06/21 02:01 Myelocytes # 0.0 K/mm3 10/06/21 02:01 Promyelocytes # 0.0 K/mm3 10/06/21 02:01 Blast Cells # 0.0 K/mm3 10/06/21 02:01 WBC Morphology Not Reportable 10/06/21 02:01 Hypersegmented Neuts Not Reportable 10/06/21 02:01 Hyposegmented Neuts Not Reportable 10/06/21 02:01 Hypogranular Neuts Not Reportable 10/06/21 02:01 Smudge Cells Not Reportable 10/06/21 02:01 Toxic Granulation Not Reportable 10/06/21 02:01 Toxic Vacuolation Not Reportable 10/06/21 02:01 Dohle Bodies Not Reportable 10/06/21 02:01 Pelger-Huet Anomaly Not Reportable 10/06/21 02:01 Erendira Rods Not Reportable 10/06/21 02:01 Platelet Estimate Consistent w auto 10/06/21 02:01 Clumped Platelets Not Reportable 10/06/21 02:01 Plt Clumps, EDTA Not Reportable 10/06/21 02:01 Large Platelets Few 10/06/21 02:01 Giant Platelets Not Reportable 10/06/21 02:01 Platelet Satelliting Not Reportable 10/06/21 02:01 Plt Morphology Comment Not Reportable 10/06/21 02:01 RBC Morphology Not Reportable 10/06/21 02:01 Dimorphic RBCs Not Reportable 10/06/21 02:01 Polychromasia Not Reportable 10/06/21 02:01 Hypochromasia 3+ 10/06/21 02:01 Poikilocytosis Not Reportable 10/06/21 02:01 Anisocytosis 2+ 10/06/21 02:01 Microcytosis 2+ 10/06/21 02:01 Macrocytosis Few 10/06/21 02:01 Spherocytes Not Reportable 10/06/21 02:01 Pappenheimer Bodies Not Reportable 10/06/21 02:01 Sickle Cells Not Reportable 10/06/21 02:01 Target Cells Not Reportable 10/06/21 02:01 Tear Drop Cells Not Reportable 10/06/21 02:01 Ovalocytes Few 10/06/21 02:01 Stomatocytes Few 10/06/21 02:01 Helmet Cells Not Reportable 10/06/21 02:01 [place] Bodies Not Reportable 10/06/21 02:01 [place] Rings Not Reportable 10/06/21 02:01 Rodolfo Cells Not Reportable 10/06/21 02:01 Bite Cells Not Reportable 10/06/21 02:01 Crenated Cell Not Reportable 10/06/21 02:01 Elliptocytes Few 10/06/21 02:01 Acanthocytes (Spur) Not Reportable 10/06/21 02:01 Rouleaux Not Reportable 10/06/21 02:01 Hemoglobin C Crystals Not Reportable 10/06/21 02:01 Schistocytes Not Reportable 10/06/21 02:01 Malaria parasites Not Reportable 10/06/21 02:01 Yoav Bodies Not Reportable 10/06/21 02:01 Hem Pathologist Commnt No 10/06/21 02:01 Sodium 135 mmol/L (137-145) L 10/07/21 05:22 Potassium 3.8 mmol/L (3.6-5.0) 10/07/21 05:22 Chloride 101.8 mmol/L (98-107) 10/07/21 05:22 Carbon Dioxide 19 mmol/L (22-30) L 10/07/21 05:22 Anion Gap 18 mmol/L 10/07/21 05:22 BUN 5 mg/dL (7-17) L 10/07/21 05:22 Creatinine 0.7 mg/dL (0.6-1.2) 10/07/21 05:22 Estimated GFR > 60 ml/min 10/07/21 05:22 BUN/Creatinine Ratio 7 % 10/07/21 05:22 Glucose 99 mg/dL (65-100) 10/07/21 05:22 Calcium 8.3 mg/dL (8.4-10.2) L 10/07/21 05:22 Iron 8 ug/dL (37-170) L 10/05/21 18:56 TIBC 218 mcg/dL (250-450) L 10/05/21 18:56 % Saturation 3.67 % 10/05/21 18:56 Transferrin 196 mg/dl (192-382) 10/05/21 18:56 Total Bilirubin 0.40 mg/dL (0.1-1.2) 10/05/21 18:56 AST 19 units/L (5-40) 10/05/21 18:56 ALT 13 units/L (7-56) 10/05/21 18:56 Alkaline Phosphatase 119 units/L (35-129) 10/05/21 18:56 Total Protein 7.9 g/dL (6.3-8.2) 10/05/21 18:56 Albumin 2.9 g/dL (3.9-5) L 10/05/21 18:56 Albumin/Globulin Ratio 0.6 % 10/05/21 18:56 Lipase 27 units/L (13-60) 10/05/21 18:56 TSH 0.976 mlU/mL (0.270-4.200) 10/07/21 13:22 Free T4 1.31 ng/dL (0.76-1.46) 10/07/21 13:22 HCG, Qual Negative (Negative) 10/05/21 18:56 Urine Color Yellow (Yellow) 10/06/21 06:15 Urine Turbidity Clear (Clear) 10/06/21 06:15 Urine pH 5.0 (5.0-7.0) 10/06/21 06:15 Ur Specific [place] 1.027 (1.003-1.030) 10/06/21 06:15 Urine Protein 30 mg/dl mg/dL (Negative) 10/06/21 06:15 Urine Glucose (UA) Neg mg/dL (Negative) 10/06/21 06:15 Urine Ketones Neg mg/dL (Negative) 10/06/21 06:15 Urine Blood Mod (Negative) 10/06/21 06:15 Urine Nitrite Neg (Negative) 10/06/21 06:15 Urine Bilirubin Neg (Negative) 10/06/21 06:15 Urine Urobilinogen < 2.0 mg/dL (<2.0) 10/06/21 06:15 Ur Leukocyte Esterase Neg (Negative) 10/06/21 06:15 Urine WBC (Auto) 2.0 /HPF (0.0-6.0) 10/06/21 06:15 Urine RBC (Auto) 3.0 /HPF (0.0-6.0) 10/06/21 06:15 U Epithel Cells (Auto) < 1.0 /HPF (0-13.0) 10/06/21 06:15 Urine Bacteria (Auto) 1+ /HPF (Negative) 10/06/21 06:15 Urine Mucus Few /HPF 10/06/21 06:15 Blood Type B POSITIVE 10/06/21 02:01 Antibody Screen Negative 10/06/21 02:01 Crossmatch See Detail 10/06/21 02:01 Card[place]/IV: Voiding Method Toilet Active Medications - Current Medications Current Medications: Generic Name Dose Route Start Last Admin Trade Name Freq PRN Reason Stop Dose Admin Acetaminophen 650 mg 10/08/21 10:00 Acetaminophen 325 Mg Tab PO Q4H PRN Pain MILD(1-3)/Fever >100.5/HERNANDEZ Hydrocodone Bitart/Acetaminophen 2 each 10/08/21 10:00 10/08/21 13:54 Hydrocodone/Acetaminophen 5-325 Mg Tab PO 2 each Q6H PRN Administration Pain, Moderate (4-6) Diphenhydramine HCl 25 mg 10/08/21 10:00 Diphenhydramine 25 Mg Cap PO Q6H PRN Itching Famotidine 20 mg 10/06/21 10:00 10/08/21 11:57 Famotidine 20 Mg Tab PO 20 mg BID ADRI Administration Hydromorphone HCl 0.5 mg 10/05/21 22:44 10/07/21 16:01 Hydromorphone 1 Mg/1 Ml Inj IV 0.5 mg Q3H PRN Administration Pain , Severe (7-10) Hydromorphone HCl 0.5 mg 10/08/21 08:00 10/08/21 09:30 Hydromorphone 1 Mg/1 Ml Inj IV 10/08/21 17:00 0.5 mg Q10MIN PRN Administration Pain , Severe (7-10) Piperacillin Sod/Tazobactam Sod 4.5 gm in 100 mls @ 200 mls/hr 10/06/21 06:00 10/08/21 14:02 Zosyn/Ns 4.5gm/100ml IV 200 mls/hr Q8H ADRI Administration Protocol Ibuprofen 600 mg 10/08/21 10:00 10/08/21 11:57 Ibuprofen 600 Mg Tab PO 600 mg Q6H ADRI Administration Methylergonovine Maleate 0.2 mg 10/08/21 14:00 10/08/21 13:54 Methylergonovine 0.2 Mg Tablet PO 10/11/21 13:59 0.2 mg Q8HR ADRI Administration Metoprolol Tartrate 12.5 mg 10/07/21 12:00 10/08/21 10:40 Metoprolol Tartrate 25 Mg Tab PO Not Given BID ADRI Ondansetron HCl 4 mg 10/08/21 08:00 Ondansetron 4 Mg/2 Ml Inj IV 10/08/21 17:00 ONCE PRN Nausea And Vomiting Ondansetron HCl 4 mg 10/08/21 09:30 Ondansetron 4 Mg/2 Ml Inj IV Q8H PRN Nausea And Vomiting Oxycodone/Acetaminophen 1 tab 10/05/21 22:44 10/07/21 21:16 Oxycodone /Acetaminophen 5-325mg Tab PO 1 tab Q6H PRN Administration Pain, Moderate (4-6) Promethazine HCl 25 mg 10/08/21 10:00 Promethazine 25 Mg Rect Supp ME Q6H PRN Nausea And Vomiting Promethazine HCl 25 mg 10/08/21 09:30 Promethazine 25 Mg Tab PO Q6H PRN Nausea And Vomiting Sodium Chloride 10 ml 10/06/21 10:00 10/07/21 23:00 Sodium Chloride 0.9% 10 Ml Flush Syringe IV 10 ml BID ADRI Administration Sodium Chloride 10 ml 10/05/21 22:44 Sodium Chloride 0.9% 10 Ml Flush Syringe IV PRN PRN LINE FLUSH
[2021-10-08 20:39] LABS: Hematocrit 33.6 % (30.3-42.9); Hemoglobin 10.3 gm/dl (10.1-14.3)
[2021-10-09] MEDS: METHYLERGONOVINE 0.2 MG TABLET PO SCH (05:02)
[2021-10-09] MEDS: IBUPROFEN 600 MG TAB PO SCH (05:02)
[2021-10-09 05:41] LABS: Hematocrit 31.4 % (30.3-42.9); Mean Corpuscular HGB Conc 32 % (30-34); Mean Corpuscular Volume 86 fl (79-97); Platelet Count 297 K/mm3 (140-440); Red Blood Count 3.65 M/mm3 (3.65-5.03); Red Cell Distribution Width 16.8 % (13.2-15.2)
[2021-10-09 06:02] LABS: BUN/Creatinine Ratio 13; Blood Urea Nitrogen 10 mg/dL (7-17); Calcium 8.7 mg/dL (8.4-10.2); Hemolysis Index 0
[2021-10-09] MEDS: PIPERACIL/TAZOBACTA 4.5/NS 100 4.5 GM/100 ML VIAL IV SCH (06:37)
[2021-10-09 07:29] LABS: Basophils # (Auto) 0.1 K/mm3 (0.0-0.1); Basophils % (Auto) 0.3 % (0.0-1.8); Eosinophils % (Auto) 0.1 % (0.0-4.3); Hematocrit 31.7 % (30.3-42.9); Lymphocytes # (Auto) 1.1 K/mm3 (1.2-5.4); Lymphocytes % (Auto) 6.9 % (13.4-35.0); Mean Corpuscular HGB Conc 32 % (30-34); Mean Corpuscular Volume 86 fl (79-97); Monocytes % (Auto) 6.1 % (0.0-7.3); Platelet Count 301 K/mm3 (140-440); Red Cell Distribution Width 17.3 % (13.2-15.2)
[2021-10-09] MEDS: HYDROcodone/ACETAMINOPHEN 5-325 MG TAB PO PRN (08:25)
[2021-10-09] MEDS: FAMOTIDINE 20 MG TAB PO SCH (10:59)
--- NOTE | 2021-10-09 11:03 | Discharge Summary ---
Providers - Providers Date of Admission: 10/07/21 11:00 Date of discharge: 10/09/21 Attending physician: WALDEMAR TEJADA MD 10/05/21 21:10 Consult to Physician [CONS] Stat Comment: RUTH ANN Frey spoke with Dr. 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) Procedure: other (exam under anesthesia, myomectomy) Discharge diagnosis: other (uerine fibroids, SP myomectomy with concern for occult malignancy) Condition at discharge: Stable Disposition: 01 HOME / SELF CARE / HOMELESS Plan - Provider Discharge Summary Activity: no sex for 6 weeks Diet: routine Additional instructions: [] Smoking cessation referral if applicable(refer to patient education folder for contact #) [] Refer to [facility]'s [facility] Booklet Call your doctor immediately for: * Fever > 100.5 * Heavy vaginal bleeding ( >1 pad per hour) * Severe persistent headache * Shortness of breath * Reddened, hot, painful area to leg or breast * Drainage or odor from incision. * Keep incision clean and dry at all times and follow doctor's instructions regarding bathing/showering - Follow up plan Follow up: PRIMARY CARE,MD [Primary Care Provider] - 7 Days (Stated complaint: ANEMIA AND PELVIC PAIN Other details as noted in HPI) WALDEMAR TEJADA MD [Staff Physician] - 7 Days
--- NOTE | 2021-10-09 11:05 | Progress Note ---
Subjective - Subjective Date of service: 10/09/21 Principal diagnosis: POD0 s/p myomectomy for prolasping fibroid Interval history: stable Vaginal bleeding minimal:L Hb 10 suspect occult uterins/cervical malignancy, final pathololgy pending plan for d/c to home with tranfer to [facility] as outpatient Yanick Le MD Patient reports: appetite normal, voiding normally, pain well controlled, ambulating normally Objective - Vital Signs Latest vital signs: Vital Signs Temp Pulse Resp BP Pulse Ox 10/09/21 08:07 97.6 F 73 18 100/63 99 10/09/21 05:02 18 10/09/21 03:32 97.2 F L 68 16 104/68 100 10/09/21 00:06 98.0 F 75 16 105/68 100 10/08/21 21:38 75 106/65 10/08/21 21:37 18 10/08/21 20:40 97.4 F L 75 16 110/68 100 10/08/21 19:35 100 10/08/21 16:26 97.6 F 78 18 99/64 98 10/08/21 11:57 98 F 93 H 18 100/70 97 Intake and Output 10/08/21 10/09/21 10/09/21 23:59 07:59 15:59 Intake Total 580 360 Output Total 200 650 Balance 380 -650 360 Intake: IV 100 ZOSYN/NS 4.5GM/100ML 4.5 100 gm In 100 ml @ 200 mls/hr IV Q8H [facility] Rx#:[id number] Oral 480 360 Output: Urine 200 650 Void 200 650 Other: Total, Intake Amount 240 360 Total, Output Amount 200 200 Voiding Method Toilet # Voids 2 Void 2 - Exam Breasts: Present: deferred Cardiovascular: Present: Regular rate Lungs: Present: Clear to auscultation Abdomen: Present: normal appearance, normal bowel sounds Uterus: Present: firm, other (18 week size) Extremities: Present: normal Deep Tendon Reflex Grade: Normal +2 - Labs Labs: Abnormal lab results 10/09/21 10/09/21 10/09/21 Range/Units 05:05 05:05 07:16 WBC 16.8 H 16.0 H (4.5-11.0) K/mm3 Hgb 10.0 L 10.0 L (10.1-14.3) gm/dl MCH 27 L 27 L (28-32) pg RDW 16.8 H 17.3 H (13.2-15.2) % Lymph % (Auto) 6.9 L (13.4-35.0) % Lymph # (Auto) 1.1 L (1.2-5.4) K/mm3 [place] # (Auto) 1.0 H (0.0-0.8) K/mm3 Seg Neutrophils % 86.6 H (40.0-70.0) % Seg Neutrophils # 13.9 H (1.8-7.7) K/mm3 Carbon Dioxide 20 L (22-30) mmol/L Glucose 110 H (65-100) mg/dL
[2021-10-09 12:49] VITALS: BP 115/74
== END 2021-10-09 12:50 | disposition home or self-care (01) | DRG 742 ==
LOC: ED 18:00 → 3A 23:32 → OBSVTOIN 10-07 11:00 → OB 10-08 10:12
PROVIDERS: ADMIT Obstetrics & Gynecology; ATTEND Obstetrics & Gynecology
PROC: 30233N1 Transfusion of Nonautologous Red Blood Cells into Peripheral Vein, Percutaneous Approach (ICD-10-PCS; 2021-10-05)
PROC: 0UB93ZZ Excision of Uterus, Percutaneous Approach (ICD-10-PCS; principal; 2021-10-08)
DX: D25.9 Leiomyoma of uterus, unspecified (principal); D62 Acute posthemorrhagic anemia; E87.1 Hypo-osmolality and hyponatremia; Z90.710 Acquired absence of both cervix and uterus; N92.0 Excessive and frequent menstruation with regular cycle; D72.828 Other elevated white blood cell count; Z20.822 Contact with and (suspected) exposure to COVID-19
CPT/HCPCS: 36415; 74177; 76830; 76856; 80048; 80053; 81001; 82670; 83001; 83550; 83690; 84439; 84443; 84703; 85007; 85014; 85018; 85025; 85027; 86850; 86900; 86901; 86920; 88309; 94640; 94760; G0378; J3490; J7120; Q0162; J1100; J1170; J1885; J2210; J2250; J2270; J2405; J2543; J2704; J3010; J7030; J7040; P9016; P9045; Q9967; U0003